=== PATIENT | female | born 1950 | race Caucasian/White ===

== ENCOUNTER → 2016-05-07 | Outpatient (CLI) | payer BC ==
[~2016-05-07] MED LIST: AMLO-110 PO; ASPEC81 PO; ATOR-26 PO; CHOL1000 PO; CHOL1TAB2; EPP3 IM; LEVO1TAB50 PO; LISI-725 PO; PRLSR20 PO; TAMO20TA47 PO; VITACAP37 PO
[2016-05-07 08:43] VITALS: BP 163/85; PULSE 104; TEMP 36.8; O2SAT 95
--- NOTE | 2016-05-07 10:18 | Radiation Oncology Follow-Up ---
Radiation Oncology Follow-Up Date of Visit May 07, 2016. Reason For Visit One-month follow-up and cancer survivorship care plan Radiation Completion Date finished 04-02-2016 right breast , and 01-08-2004 left breast Diagnosis (1) Intraductal carcinoma of right breast Status: Acute Onset Date: 11/03/2015 Stage: 0 Permanent Comment: History of prior left breast DCIS in 2003 Status post lumpectomy followed by radiation therapy. Radiation completed 01/07 received 6120 cGy Abnormal right breast mammogram 10/22/2015 Status post ultrasound-guided biopsy 11/03/2015 revealing atypical papillary proliferation with atypia and at least ADH. Review of slides at [facility] showed ductal carcinoma in situ Status post mammotome biopsies of the right breast 12/29/2015 revealing benign tissue Stage pTis NXMX Estrogen receptor positive BRCA1 and BRCA2 testing negative Status post completion of radiation therapy 04/02/2016. Received 5130 cGy utilizing hypo-fractionation. Tamoxifen therapy Last Edited By: Alyx Hooks on May 07, 2016 09:58 History of Present Illness Ms. Edmonds is a 65-year-old female who was seen at age 53 and November 2003 with a high-grade DCIS of the left breast. 5 foci of high-grade DCIS was identified and estrogen and progesterone receptors were negative. The patient underwent a partial mastectomy on 09/24/2003 confirming a high-grade DCIS with no infiltrating carcinoma and negative margins. 2 close margins were reexcised on October 20 and these were also negative. The patient went on to have adjuvant radiation to the left breast and chest wall from 11/21/2003 through January 08, 2004. She received a left breast and chest wall dose of 46.8 Gy and a boost of 14.4 Gy for a total dose of 61.2 Gy. The patient tolerated the treatment well and has been followed with mammograms since then. Her bilateral digital screening mammogram from 09/30/2014 revealed no mammographic abnormalities. However her bilateral digital screening mammograms on 10/22/2015 showed a new 3 mm right upper inner quadrant breast mass with additional imaging recommended. The additional imaging was performed on 2015. Real-time high-resolution sonographic evaluation was performed of the upper inner quadrant of the right breast at the 1:00 axis 4 cm from the nipple. This confirmed a circumscribed isoechoic solid appearing mass measuring 4.1 x 2.7 x 4.2 mm. This correlated with the mammographic mass and was given a BI- RADS Category 4B (intermediate suspicion for malignancy). On 11/03/2015 the patient underwent an ultrasound-guided biopsy of the right breast. This revealed atypical papillary proliferation with atypia at least ADH. No invasive carcinoma was identified and an excisional biopsy was suggested. Case : [id number]. Patient was seen at [facility] by Dr. Lassiter. She obtain the slides for review at [facility]. 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 Accession #: [id number]. As part of their protocol bilateral breast MRIs were recommended and performed on 12/24/2015. These images showed a right breast focus at the 8 o' clock position which was abnormal with an MRI guided biopsy recommended. On the patient underwent mammotome biopsies of the right breast 8 o'clock position. These revealed benign breast tissue with sclerosing adenosis, usual ductal hyperplasia, columnar cell change and apocrine metaplasia but no DCIS or invasive carcinoma. Accession #: [id number]. Patient went on to have a partial mastectomy of the right breast biopsy positive lesion on 01/29/2016. Review of the lumpectomy specimen revealed fibrocystic change including apocrine metaplasia with rare microcalcifications but no in situ or invasive carcinoma was identified. Accession #: [id number]. The submitted estrogen receptor stain demonstrated strong positive staining in 100% of the cells. Patient is scheduled to see Dr. Roman Gooden for discussion of the role of adjuvant antiestrogen therapy. We were asked to see her in referral to discuss the role of adjuvant radiation. Patient underwent radiation therapy utilizing hypo-fractionation. This was completed 11/01 2015 she received 5130 cGy. Interim History She's been doing well over the past month. She denies any discomfort of the breast. She is noted no masses or tenderness no change of the axilla. She does have some dark discoloration of the skin that is getting centrifugal operator. She also noticed that there are some skin tags in the inframammary fold that appear darker. She wanted these to be checked. She is currently scheduled for mammography and follow-up appointment with her breast surgeon in July. She recently returned home after enjoying a cruise. She chose to start her tamoxifen following her trip. She started the medication last week. She denies side effects other than mild hot flashes. Dr. Gooden recommended vitamin E to help with the hot flashes. Allergies Coded Allergies: BEE STING (Verified Allergy, Mild, Hives, 02/19/16) Home Medications Scheduled Amlodipine (Norvasc), 5 MG PO DAILY Aspirin Enteric Coated (Ecotrin Or Generic *), 81 MG PO DAILY Atorvastatin (Lipitor), 1 TAB PO DAILY Cholecalciferol (Vitamin D-3), 3,000 DAILY Epinephrine (Epipen *), 0.3 MG IM UD prn Levothyroxine Sodium (Levoxyl), 50 MCG PO DAILY Lisinopril (Zestril), 20 MG PO DAILY Omeprazole (Prilosec), 20 MG PO DAILY Tamoxifen (Nolvadex), 20 MG PO DAILY Review of Systems Gastrointestinal: Symptoms: WNL Oral: Symptoms: No Problems Respiratory: Symptoms: WNL Other Respiratory: " I think I am getting a cold " Urinary: Symptoms: WNL Skin: Symptoms: No Problems Breast: Right Upper Arm Measurement: 31.0 Right Mid Arm Measurement: 23.5 Right Wrist Measurement: 15.1 Left Upper Arm Measurement: 31.4 Left Mid Arm Measurement: 23.0 Left Wrist Measurement: 15.4 Arm Dominence: Right Patient Cosmetic Evaluation: Excellent Staff Cosmetic Evalaluation: Excellent Additional Notes: She completed a distress management report and answered "no" to all questions. Physical Exam Vital Signs Date Time Temp Pulse Resp B/P Pulse Ox O2 Delivery O2 Flow Rate FiO2 05/07/16 08:43 36.8 104 16 163/85 95 Pain: Side: Bilateral Patient Pain Scale: 0 - 10 Initial Pain Intensity: 0.0 Fatigue: None General Appearance: no apparent distress Eyes: normal inspection, EOMI ENT: normal ENT inspection, hearing grossly normal Neck: no adenopathy Respiratory/Chest: lungs clear, no respiratory distress, no accessory muscle use Breast: Breast examination reveals well-healed incisions in the right breast. There is resolving hyperpigmentation in the central upper portion of the breast. There is dryness of the skin in this area. She has a few dark keratotic lesions in the inframammary fold. There are no masses or tenderness and no axillary adenopathy. Using the [place] score cosmesis she has a a fair outcome due to the hyperpigmentation. Left breast revealed healed incision. There are no masses or tenderness and no axillary adenopathy. Cardiovascular: regular rate, rhythm, no gallop, no murmur Abdomen: non tender, soft, no organomegaly Extremities: no pedal edema Neurologic/Psychiatric: alert, normal mood/affect Skin: warm/dry Lymphatic: no adenopathy Assessment & Plan She is scheduled for follow-up mammogram and recheck visit with her breast surgeon in July. She'll be seeing Dr. Gooden in June. She continues on tamoxifen. For the areas of skin dryness of the breast and hyperpigmentation she was given Aquaphor. I reviewed with her that the keratotic lesions have changed due to the radiation. These will become centrifugal operator in color over time as the hyperpigmentation resolves. Today we completed a cancer survivorship care plan. A copy of the document was given to the patient. We reviewed that her follow-up mammograms will continue to be digital diagnostic mammograms. She was given a survivorship booklet. I asked her to return to our office in 6 months. She'll call if she has any questions or concerns in the interim. Total Time In Follow-Up I spent 20 minutes speaking to the patient performing examination. I spent 20 minutes reviewing information, completing the survivorship document, and completing this note. Copy To Roman Gooden D.O.; Olivia Lassiter D.O.; Robbi Wise M.D.
== END | disposition home or self-care (01) ==
LOC: C.ONC 08:26
PROVIDERS: ATTEND Radiology Radiation Oncology
DX: Z08 Encounter for follow-up examination after completed treatment for malignant neoplasm (principal); Z92.3 Personal history of irradiation; Z85.3 Personal history of malignant neoplasm of breast

== ENCOUNTER → 2016-07-01 | Outpatient (CLI) | payer BC ==
[~2016-07-01] MED LIST changes: -CHOL1000 PO
[2016-07-01 12:34] LABS: ALT/SGPT 39 U/L (12-78); BLOOD UREA NITROGEN 17 mg/dl (7-18); CALCIUM 9.1 mg/dl (8.5-10.1); CARBON DIOXIDE 28 mmol/L (21-32); CHLORIDE 108 mmol/L (98-107); CHOLESTEROL 206 mg/dl (0-200); GLUCOSE 94 mg/dl (70-99); POTASSIUM 4.3 mmol/L (3.5-5.1); SODIUM 142 mmol/L (136-145)
[2016-07-01 12:45] LABS: AST/SGOT 21 U/L (15-37); CHOLESTEROL/HDL RATIO 4.7; HDL CHOLESTEROL 44 mg/dl; LDL CHOLESTEROL CALCULATED 135 mg/dl; TRIGLYCERIDES 133 mg/dl (0-150); VERY LOW DENSITY LIPOPROT CALC 27 mg/dl
[2016-07-01 13:20] LABS: ESTIMATED AVERAGE GLUCOSE 120 mg/dl; HA1C FLAG Normal (Normal)
== END | disposition home or self-care (01) ==
LOC: C.LABPBG 07:57
PROVIDERS: ATTEND Internal Medicine
DX: R73.9 Hyperglycemia, unspecified (principal); E78.5 Hyperlipidemia, unspecified; E55.9 Vitamin D deficiency, unspecified; E03.9 Hypothyroidism, unspecified

== ENCOUNTER → 2016-09-02 | Outpatient (CLI) | payer BC ==
[~2016-09-02] MED LIST changes: +ASPCH81X PO; +CHOL1000 PO; +CHOL2000 PO; +EPP3/2 IM; +LEVO50TA6 PO; -TAMO20TA47 PO; +TAMO20TA9 PO; +VITA400C3 PO
== END | disposition home or self-care (01) ==
LOC: C.MAMM 08:32
PROVIDERS: ATTEND Obstetrics & Gynecology
DX: M85.89 Other specified disorders of bone density and structure, multiple sites (principal); Z78.0 Asymptomatic menopausal state

== ENCOUNTER → 2016-11-09 | Outpatient (CLI) | payer BC ==
[~2016-11-09] MED LIST changes: -ASPCH81X PO; -CHOL1000 PO; -CHOL2000 PO; -EPP3/2 IM; -LEVO50TA6 PO; +TAMO20TA47 PO; -TAMO20TA9 PO; -VITA400C3 PO
[2016-11-09 13:15] VITALS: BP 135/73; PULSE 98; TEMP 36.7; O2SAT 97
--- NOTE | 2016-11-09 16:00 | Radiation Oncology Follow-Up ---
Radiation Oncology Follow-Up Date of Visit Nov 09, 2016. Reason For Visit Annual follow-up Radiation Completion Date Right Breast - 04/02/16 Left Breast - 01/08/04 Diagnosis (1) Intraductal carcinoma of right breast Status: Resolved Onset Date: 11/03/2015 Stage: 0 Permanent Comment: History of prior left breast DCIS in 2003 Status post lumpectomy followed by radiation therapy. Radiation completed 01/07 received 6120 cGy Abnormal right breast mammogram 10/22/2015 Status post ultrasound-guided biopsy 11/03/2015 revealing atypical papillary proliferation with atypia and at least ADH. Review of slides at [facility] showed ductal carcinoma in situ Status post mammotome biopsies of the right breast 12/29/2015 revealing benign tissue Stage pTis NXMX Estrogen receptor positive BRCA1 and BRCA2 testing negative Status post completion of radiation therapy 04/02/2016. Received 5130 cGy utilizing hypo-fractionation. Tamoxifen therapy Last Edited By: Alyx Hooks on May 07, 2016 09:58 History of Present Illness Ms. Edmonds is a 65-year-old female who was seen at age 53 and November 2003 with a high-grade DCIS of the left breast. 5 foci of high-grade DCIS was identified and estrogen and progesterone receptors were negative. The patient underwent a partial mastectomy on 09/24/2003 confirming a high-grade DCIS with no infiltrating carcinoma and negative margins. 2 close margins were reexcised on October 20 and these were also negative. The patient went on to have adjuvant radiation to the left breast and chest wall from 11/21/2003 through January 08, 2004. She received a left breast and chest wall dose of 46.8 Gy and a boost of 14.4 Gy for a total dose of 61.2 Gy. The patient tolerated the treatment well and has been followed with mammograms since then. Her bilateral digital screening mammogram from 09/30/2014 revealed no mammographic abnormalities. However her bilateral digital screening mammograms on 10/22/2015 showed a new 3 mm right upper inner quadrant breast mass with additional imaging recommended. The additional imaging was performed on 2015. Real-time high-resolution sonographic evaluation was performed of the upper inner quadrant of the right breast at the 1:00 axis 4 cm from the nipple. This confirmed a circumscribed isoechoic solid appearing mass measuring 4.1 x 2.7 x 4.2 mm. This correlated with the mammographic mass and was given a BI- RADS Category 4B (intermediate suspicion for malignancy). On 11/03/2015 the patient underwent an ultrasound-guided biopsy of the right breast. This revealed atypical papillary proliferation with atypia at least ADH. No invasive carcinoma was identified and an excisional biopsy was suggested. Case : [id number]. Patient was seen at [facility] by Dr. Lassiter. She obtain the slides for review at [facility]. 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 Accession #: [id number]. As part of their protocol bilateral breast MRIs were recommended and performed on 12/24/2015. These images showed a right breast focus at the 8 o' clock position which was abnormal with an MRI guided biopsy recommended. On the patient underwent mammotome biopsies of the right breast 8 o'clock position. These revealed benign breast tissue with sclerosing adenosis, usual ductal hyperplasia, columnar cell change and apocrine metaplasia but no DCIS or invasive carcinoma. Accession #: [id number]. Patient went on to have a partial mastectomy of the right breast biopsy positive lesion on 01/29/2016. Review of the lumpectomy specimen revealed fibrocystic change including apocrine metaplasia with rare microcalcifications but no in situ or invasive carcinoma was identified. Accession #: [id number]. The submitted estrogen receptor stain demonstrated strong positive staining in 100% of the cells. Patient is scheduled to see Dr. Roman Gooden for discussion of the role of adjuvant antiestrogen therapy. We were asked to see her in referral to discuss the role of adjuvant radiation. Patient underwent radiation therapy utilizing hypo-fractionation. This was completed 11/01 2015 she received 5130 cGy. Interim History She's been doing well over this past 6 months. She denies any changes to her breast. She has noted no masses or tenderness no change of the axilla. She's had no swelling of her arm. She is up-to-date on mammography. She was started on tamoxifen. She is tolerating this other than it does cause hot flashes. She is taking vitamin E to help with hot flashes. She feels this may also cause softer bowel movements and more regular bowel movements. Allergies Coded Allergies: BEE STING (Verified Allergy, Mild, Hives, 02/19/16) Home Medications Scheduled Amlodipine (Norvasc), 5 MG PO DAILY Aspirin Enteric Coated (Ecotrin Or Generic *), 81 MG PO DAILY Atorvastatin (Lipitor), 1 TAB PO DAILY Cholecalciferol (Vitamin D-3), 3,000 DAILY Epinephrine (Epipen *), 0.3 MG IM UD prn Levothyroxine Sodium (Levoxyl), 50 MCG PO DAILY Lisinopril (Zestril), 20 MG PO DAILY Omeprazole (Prilosec), 20 MG PO DAILY Tamoxifen (Nolvadex), 20 MG PO DAILY Vitamin E (E-400), 1 CAP PO DAILY Review of Systems Gastrointestinal: Symptoms: WNL GI Comments: Looser bowels normal Oral: Symptoms: No Problems Respiratory: Symptoms: WNL Urinary: Symptoms: WNL Skin: Symptoms: No Problems Breast: Right Upper Arm Measurement: 30.5 Right Mid Arm Measurement: 24.1 Right Wrist Measurement: 15.0 Left Upper Arm Measurement: 31.0 Left Mid Arm Measurement: 24.3 Left Wrist Measurement: 15.0 Arm Dominence: Right Physical Exam Vital Signs Date Time Temp Pulse Resp B/P (MAP) Pulse Ox O2 Delivery O2 Flow Rate FiO2 11/09/16 13:15 36.7 98 18 135/73 97 Fatigue: None General Appearance: no apparent distress Eyes: normal inspection, EOMI ENT: hearing grossly normal, TMs normal Neck: no adenopathy, thyroid normal Respiratory/Chest: lungs clear, no respiratory distress, no accessory muscle use Breast: Breast examination reveals palpable deficit in the upper outer quadrant. There are no masses or tenderness no axillary adenopathy. Shows no telangiectasia or nipple changes. The hyperpigmentation has resolved. Using the [place] score cosmesis she has a good outcome. Left breast revealed well-healed incision. There are no masses or tenderness and no axillary adenopathy. Cardiovascular: regular rate, rhythm, no gallop, no murmur Abdomen: non tender, soft, no organomegaly Extremities: no pedal edema Neurologic/Psychiatric: no motor/sensory deficits, alert, normal mood/affect Skin: warm/dry Lymphatic: no adenopathy Additional Studies She had a mammogram at [facility] 10/28/2016. This showed postoperative changes in both breasts are benign. Bilateral diagnostic mammogram is recommended in 1 year. BI-RADS Category 2. Assessment & Plan Plan: Continue regular follow-up with medical oncology, her breast surgeon, primary care physician. Continue annual mammography. She continues on tamoxifen. We asked her to return to our office in 1 year. She may call if she has any questions or concerns in the interim. Total Time In Follow-Up I spent 20 minutes speaking to the patient and performing examination. I spent 15 minutes reviewing information in completing this note. Copy To Roman Gooden D.O.; Olivia Lassiter D.O.; Robbi Wise M.D.
== END | disposition home or self-care (01) ==
LOC: C.ONC 12:53
PROVIDERS: ATTEND Physician Assistant Medical
DX: Z08 Encounter for follow-up examination after completed treatment for malignant neoplasm (principal); Z92.3 Personal history of irradiation; Z85.3 Personal history of malignant neoplasm of breast

== ENCOUNTER → 2017-01-03 | Outpatient (CLI) | payer BC ==
[2017-01-03 12:08] LABS: BASO % 0.2 %; BASO ABS # 0.01 K/uL (0-0.2); COMPLETE YES; EOS % 1.7 %; IG% 0.2 %; LYMPH % 19.3 %; LYMPH ABS # 1.03 K/uL (1.2-3.4); MEAN CELL VOLUME 88.4 fL (80-100); MEAN CORPUSCULAR HEMOGLOBIN 28.2 pg (25-34); MEAN CORPUSCULAR HGB CONC 31.9 g/dl (32-36); MEAN PLATELET VOLUME 10.5 fL (7.4-10.4); MONO % 7.5 %; NEUT % 71.1 %; PLATELET COUNT 186 K/uL (130-400); RED BLOOD COUNT 4.75 M/uL (4.2-5.4); WHITE BLOOD COUNT 5.33 K/uL (4.8-10.8)
[2017-01-03 12:19] LABS: ALT/SGPT 36 U/L (12-78); AST/SGOT 19 U/L (15-37); BLOOD UREA NITROGEN 12 mg/dl (7-18); BUN/CREATININE RATIO 13.8 (10-20); CALCIUM 9.1 mg/dl (8.5-10.1); CARBON DIOXIDE 27 mmol/L (21-32); CHLORIDE 108 mmol/L (98-107); CHOLESTEROL 184 mg/dl (0-200); GLUCOSE 85 mg/dl (70-99); SODIUM 142 mmol/L (136-145); TRIGLYCERIDES 144 mg/dl (0-150); VERY LOW DENSITY LIPOPROT CALC 29 mg/dl
[2017-01-03 12:29] LABS: CHOLESTEROL/HDL RATIO 4.3; HDL CHOLESTEROL 43 mg/dl; LDL CHOLESTEROL CALCULATED 112 mg/dl
[2017-01-03 12:38] LABS: ESTIMATED AVERAGE GLUCOSE 120 mg/dl; HA1C FLAG Normal (Normal)
== END | disposition home or self-care (01) ==
LOC: C.LABPBG 10:16
PROVIDERS: ATTEND Internal Medicine
DX: E78.5 Hyperlipidemia, unspecified (principal); I10 Essential (primary) hypertension; R73.9 Hyperglycemia, unspecified; E03.9 Hypothyroidism, unspecified; K21.0 Gastro-esophageal reflux disease with esophagitis

== ENCOUNTER → 2017-06-17 | Outpatient (CLI) | payer BC ==
[~2017-06-17] MED LIST changes: +ASPCH81X PO; -ASPEC81 PO; +CHOL1000 PO; -CHOL1TAB2; +CHOL2000 PO; -EPP3 IM; +EPP3/2 IM; -LEVO1TAB50 PO; +LEVO50TA6 PO; -TAMO20TA47 PO; +TAMO20TA9 PO; +VITA400C3 PO; -VITACAP37 PO
[2017-06-17 11:59] LABS: HEMOGLOBIN A1C 5.7 % (4.5-5.6)
[2017-06-17 17:29] LABS: ALT/SGPT 35 U/L (12-78); AST/SGOT 19 U/L (15-37); BLOOD UREA NITROGEN 19 mg/dl (7-18); CALCIUM 8.9 mg/dl (8.5-10.1); CARBON DIOXIDE 25 mmol/L (21-32); CHOLESTEROL 178 mg/dl (0-200); CREATININE 1.01 mg/dl (0.60-1.20); GLUCOSE 93 mg/dl (70-99); LDL CHOLESTEROL CALCULATED 107 mg/dl; POTASSIUM 3.9 mmol/L (3.5-5.1); SODIUM 139 mmol/L (136-145)
== END | disposition home or self-care (01) ==
LOC: C.LABPBG 10:23
PROVIDERS: ATTEND Internal Medicine
DX: E78.5 Hyperlipidemia, unspecified (principal); R73.9 Hyperglycemia, unspecified; E03.9 Hypothyroidism, unspecified; E55.9 Vitamin D deficiency, unspecified

== ENCOUNTER → 2017-11-09 | Outpatient (CLI) | payer BC ==
[~2017-11-09] MED LIST changes: -AMLO-110 PO; +AMLO5TAB3 PO
[2017-11-09 12:41] VITALS: BP 142/77; PULSE 76; TEMP 36.7; O2SAT 99
--- NOTE | 2017-11-09 13:27 | Radiation Oncology Follow-Up ---
Radiation Oncology Follow-Up Date of Visit Nov 09, 2017. Reason For Visit Annual follow-up Radiation Completion Date 04/02/16 hypofractionation Diagnosis (1) Intraductal carcinoma of right breast Status: Resolved Onset Date: 11/03/2015 Stage: 0 Permanent Comment: History of prior left breast DCIS in 2003 Status post lumpectomy followed by radiation therapy. Radiation completed 01/07 received 6120 cGy Abnormal right breast mammogram 10/22/2015 Status post ultrasound-guided biopsy 11/03/2015 revealing atypical papillary proliferation with atypia and at least ADH. Review of slides at [facility] showed ductal carcinoma in situ Status post mammotome biopsies of the right breast 12/29/2015 revealing benign tissue Stage pTis NXMX Estrogen receptor positive BRCA1 and BRCA2 testing negative Status post completion of radiation therapy 04/02/2016. Received 5130 cGy utilizing hypo-fractionation. Tamoxifen therapy Last Edited By: Alyx Hooks on May 07, 2016 09:58 History of Present Illness Ms. Edmonds is a 65-year-old female who was seen at age 53 and November 2003 with a high-grade DCIS of the left breast. 5 foci of high-grade DCIS was identified and estrogen and progesterone receptors were negative. The patient underwent a partial mastectomy on 09/24/2003 confirming a high-grade DCIS with no infiltrating carcinoma and negative margins. 2 close margins were reexcised on October 20 and these were also negative. The patient went on to have adjuvant radiation to the left breast and chest wall from 11/21/2003 through January 08, 2004. She received a left breast and chest wall dose of 46.8 Gy and a boost of 14.4 Gy for a total dose of 61.2 Gy. The patient tolerated the treatment well and has been followed with mammograms since then. Her bilateral digital screening mammogram from 09/30/2014 revealed no mammographic abnormalities. However her bilateral digital screening mammograms on 10/22/2015 showed a new 3 mm right upper inner quadrant breast mass with additional imaging recommended. The additional imaging was performed on 2015. Real-time high-resolution sonographic evaluation was performed of the upper inner quadrant of the right breast at the 1:00 axis 4 cm from the nipple. This confirmed a circumscribed isoechoic solid appearing mass measuring 4.1 x 2.7 x 4.2 mm. This correlated with the mammographic mass and was given a BI- RADS Category 4B (intermediate suspicion for malignancy). On 11/03/2015 the patient underwent an ultrasound-guided biopsy of the right breast. This revealed atypical papillary proliferation with atypia at least ADH. No invasive carcinoma was identified and an excisional biopsy was suggested. Case : [id number]. Patient was seen at [facility] by Dr. Lassiter. She obtain the slides for review at [facility]. 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 Accession #: [id number]. As part of their protocol bilateral breast MRIs were recommended and performed on 12/24/2015. These images showed a right breast focus at the 8 o' clock position which was abnormal with an MRI guided biopsy recommended. On the patient underwent mammotome biopsies of the right breast 8 o'clock position. These revealed benign breast tissue with sclerosing adenosis, usual ductal hyperplasia, columnar cell change and apocrine metaplasia but no DCIS or invasive carcinoma. Accession #: [id number]. Patient went on to have a partial mastectomy of the right breast biopsy positive lesion on 01/29/2016. Review of the lumpectomy specimen revealed fibrocystic change including apocrine metaplasia with rare microcalcifications but no in situ or invasive carcinoma was identified. Accession #: [id number]. The submitted estrogen receptor stain demonstrated strong positive staining in 100% of the cells. Patient is scheduled to see Dr. Roman Gooden for discussion of the role of adjuvant antiestrogen therapy. We were asked to see her in referral to discuss the role of adjuvant radiation. Patient underwent radiation therapy utilizing hypo-fractionation. This was completed 11/01 2015 she received 5130 cGy. Interim History She has been doing well over the past year. She is noted no changes to her breast. She is noted no masses or tenderness and no change of the axilla. There is no swelling of her arm. She is up-to-date on mammography. She is seen regularly by her breast surgeon and has mammography at [facility]. She did receive a letter that the mammogram was negative. She continues on tamoxifen and denies side effects. She had a routine colonoscopy February 2017 and that was negative. Allergies Coded Allergies: BEE STING (Verified Allergy, Mild, Hives, 02/10/17) NO KNOWN DRUG ALLERGIES (Verified Allergy, Unknown, ., 02/10/17) Home Medications Scheduled Amlodipine (Norvasc), 5 MG PO QAM Aspirin (Aspirin Chewable), 81 MG PO QAM Atorvastatin (Lipitor), 1 TAB PO HS Cholecalciferol (Vitamin D3), 1 TAB PO QAM Cholecalciferol (Vitamin D3), 1 CAP PO QAM Epinephrine (Epipen), 0.3 MG IM UD Levothyroxine Sodium (Levothyroxine Sodium), 1 TAB PO HS Lisinopril (Zestril), 20 MG PO QAM Omeprazole (Prilosec), 20 MG PO QAM Tamoxifen (Nolvadex), 20 MG PO HS Vitamin E (Vitamin E 400 Iu), 400 INTER.UNIT PO HS Review of Systems Gastrointestinal: Symptoms: WNL Oral: Symptoms: No Problems Respiratory: Symptoms: WNL Urinary: Symptoms: WNL Skin: Symptoms: No Problems Breast: Right Upper Arm Measurement: 32.5 Right Mid Arm Measurement: 25.5 Right Wrist Measurement: 15.3 Left Upper Arm Measurement: 32.3 Left Mid Arm Measurement: 25.3 Left Wrist Measurement: 15.0 Arm Dominence: Right Physical Exam Vital Signs Date Time Temp Pulse Resp B/P (MAP) Pulse Ox O2 Delivery O2 Flow Rate FiO2 11/09/17 12:41 36.7 76 12 142/77 99 Fatigue: None General Appearance: no apparent distress Eyes: normal inspection, EOMI ENT: normal ENT inspection, hearing grossly normal Neck: no adenopathy, thyroid normal Respiratory/Chest: lungs clear, no respiratory distress, no accessory muscle use Breast: Wrist examination reveals bilateral well-healed incisions. There are no masses or tenderness and no axillary adenopathy. There is a slight defect from the lumpectomy in the upper outer quadrant of the right breast. There are fibrous changes around the defect. There are no distinct masses. Bilaterally there is no axillary adenopathy. Using the [place] score cosmesis she has a good outcome. Cardiovascular: regular rate, rhythm, no gallop, no murmur Abdomen: non tender Extremities: no pedal edema Neurologic/Psychiatric: no motor/sensory deficits, alert, normal mood/affect Skin: warm/dry Pain Management Patient Reports Pain: No Initial Pain Intensity: 0.0 Pain Management Plan She denies pain therefore requires no pain management. Laboratory Laboratory Results: not applicable Pathology Pathology Results: were reviewed, and pertinent findings noted in HPI Imaging Imaging Studies: were reviewed, and pertinent findings noted below Imaging Comments She had a mammogram at [facility] October 31, 2017. This showed stable postlumpectomy changes in both breasts which are benign. A bilateral diagnostic mammogram is recommended in 1 year. This was given BI-RADS Category 2. Benign. Assessment & Plan Plan: Continue with annual mammography. She continues follow-up with her primary care provider and breast surgeon. She continues follow-up with medical oncology. She continues on tamoxifen. We asked her to return to our office in 1 year. She may call if she has any questions or concerns in the interim. Total Time In Follow-Up I spent 20 minutes speaking to the patient in performing examination. I spent 15 minutes reviewing information and completing this note. Copy To Roman Gooden D.O.; Olivia Lassiter D.O.; Robbi Wise M.D.
== END | disposition home or self-care (01) ==
LOC: C.ONC 12:31
PROVIDERS: ATTEND Physician Assistant Medical
DX: Z08 Encounter for follow-up examination after completed treatment for malignant neoplasm (principal); Z92.3 Personal history of irradiation; Z85.3 Personal history of malignant neoplasm of breast

== ENCOUNTER 2019-04-13 08:32 | Observation (INO) ==
--- NOTE | 2019-04-05 11:11 | Anesthesiology Consultation ---
Date of Service April 05, 2019 Assessment & Plan Chart Review Chart Review: Pending: Refer to Additional Notes / Consult section (Patient has a h/o carotid artery stenosis, please obtain a recent carotid doppler) History Surgery Operation Date: 04/13/19 10:50 Proposed Procedures p Robotic Total Laparoscopic Hysterectomy - Kelin Archibald DO Height/Weight Height: 5 ft 1.75 in Weight: 68.039 kg Allergies Allergy/AdvReac Type Severity Reaction Status Date / Time bee venom protein (honey bee) Allergy Mild Hives Verified 04/02/19 14:10 No Known Drug Allergies Allergy Unknown . Verified 04/02/19 14:10 Medications Home Medications Medication Instructions Recorded Confirmed Last Taken amlodipine 5 mg tablet 5 mg PO QAM 01/02/19 04/02/19 02/26/19 06:50 cholecalciferol (vitamin D3) 3,000 3,000 units PO QAM 01/02/19 04/02/19 02/25/19 unit tablet lisinopril 20 mg tablet 20 mg PO QAM 01/02/19 04/02/19 02/25/19 omeprazole 20 mg capsule,delayed 20 mg PO QAM 01/02/19 04/02/19 02/26/19 06:50 release tamoxifen 20 mg tablet 20 mg PO PM 01/02/19 04/02/19 02/25/19 epinephrine 0.3 mg/0.3 mL 0.3 mg IM UD PRN ea 01/08/19 04/02/19 Unknown injection, auto-injector ibuprofen 600 mg tablet 600 mg PO DIRECTED PRN 02/01/19 04/02/19 02/15/19 atorvastatin 80 mg PO QPM 02/06/19 04/02/19 02/25/19 vitamin E 400 unit PO PM 02/06/19 04/02/19 02/25/19 levothyroxine 75 mcg tablet 75 mcg PO QPM 02/08/19 04/02/19 02/25/19 aspirin 81 mg PO QAM 04/02/19 04/02/19 Unknown Past Medical History Medical History Carotid artery stenosis (Acute) Chronic reflux esophagitis (Acute) H/O malignant neoplasm of breast LT- Had radiation History of carcinoma in situ of breast Hyperlipidemia (Acute) Hypertension (Acute) Hypothyroidism (Acute) Intraductal carcinoma of right breast (Resolved 11/03/15) "History of prior left breast DCIS in 2003 Status post lumpectomy followed by radiation therapy. Radiation completed 01/08/2004 received 6120 cGy Abnormal right breast mammogram 10/22/2015 Status post ultrasound-guided biopsy 11/03/2015 revealing atypical papillary proliferation with atypia and at least ADH. Review of slides at [place] showed ductal carcinoma in situ Status post mammotome biopsies of the right breast 12/29/2015 revealing benign tissue Stage pTis NXMX Estrogen receptor positive BRCA1 and BRCA2 testing negative Status post completion of radiation therapy 04/02/2016. Received 5130 cGy utilizing hypo-fractionation. Tamoxifen therapy" On 04/13/16 14:49 Alyx Hooks wrote "History of prior left breast DCIS in 2003 Status post lumpectomy followed by radiation therapy. Radiation completed 01/08/2004 received 6120 cGy Abnormal right breast mammogram 10/22/2015 Status post ultrasound-guided biopsy 11/03/2015 revealing atypical papillary proliferation with atypia and at least ADH. Review of slides at [place] showed ductal carcinoma in situ Status post mammotome biopsies of the right breast 12/29/2015 revealing benign tissue Stage pTis NXMX Estrogen receptor positive Status post completion of radiation therapy 04/02/2016. Received 5130 cGy utilizing hypo-fractionation." On 02/19/16 10:32 Alyx Hooks wrote "History of prior left breast DCIS in 2003 Status post lumpectomy followed by radiation therapy. Radiation completed 01/08/2004 received 6120 cGy Abnormal right breast mammogram 10/22/2015 Status post ultrasound-guided biopsy 11/03/2015 revealing atypical papillary proliferation with atypia and at least ADH. Review of slides at [place] showed ductal carcinoma in situ Status post mammotome biopsies of the right breast 12/29/2015 revealing benign tissue Stage pTis NXMX Estrogen receptor positive" Postmenopausal bleeding (Acute) Temporomandibular joint disorder hx Tendonitis Vitamin D deficiency (Acute) Past Family History Family History Aunt Breast cancer maternal aunt Father Hypertension Stroke Ischemic heart disease Mother Hypertension Stroke Hyperlipidemia Past Surgical History Surgical History (Reviewed 04/05/19 @ 11:04 by LESLI Estrada H/O dilation and curettage History of colonoscopy S/P breast lumpectomy x2 Social History Smoking Status: Never smoker Hx Alcohol Use: Yes Alcohol type: beer alcohol intake frequency: a few times a month Hx Substance Use: No substance use type: does not use Testing Laboratory Results Laboratory Tests 04/02/19 04/02/19 04/02/19 15:34 15:34 15:34 WBC 8.13 Hgb 14.1 Plt Count 236 Sodium 139 Potassium 3.4 L Chloride 108 H Carbon Dioxide 27 BUN 19 H Creatinine 1.03 Glucose 89 TSH 0.788 Electrocardiogram Date: 02/01/19 Findings: + NSR @ (99 bpm)
[~2019-04-13 08:32] MED LIST changes: +ACETAMINOPHEN 1000 MG/100 ML IV IV ONE; -AMLO5TAB3 PO; -ASPCH81X PO; -ATOR-26 PO; +CEFAZOLIN 2000MG 2,000 MG/15 ML SYR IV SCH; -CHOL1000 PO; -CHOL2000 PO; +DEXAMETHASONE SOD INJ 4 MG/ML VIAL ONE; -EPP3/2 IM; -LEVO50TA6 PO; +LIDOCAINE HCL 2% 2 ML VIAL/AMP(20MG/ML) INFIL ONE; -LISI-725 PO; +LR 15ML/HR IV SCH; +MIDAZOLAM HCL 1 MG/ML 2ML VIAL ONE; +ONDANSETRON INJ 2 MG/ML 2 ML VIAL ONE; -PRLSR20 PO; +PROPOFOL IV EMULSION 10 MG/ML 20 ML VIAL IV ONE; +ROCURONIUM BROMIDE 10 MG/ML 5 ML VIAL ONE; -TAMO20TA9 PO; -VITA400C3 PO; +fentaNYL citrate 100 MCG/2 ML VIAL ONE
--- NOTE | 2019-04-13 09:47 | History & Physical Bridge Note ---
Date of Service April 13, 2019 History & Physical Bridge Note I have examined the patient, reviewed the History & Physical and in the interval since the performance of the History & Physical I have noted the following changes of clinical significance: no changes noted
[2019-04-13] MEDS ORDERED: BUPIVACAINE 0.5 % 5 MG/1 ML MPF 30ML VIAL ONE (10:20)
[2019-04-13] MEDS ORDERED: METHYLENE BLUE 0.5% 10 ML VIAL ONE (10:20)
[2019-04-13] MEDS ORDERED: fentaNYL citrate 100 MCG/2 ML VIAL ONE ×3 (11:15→12:42)
[2019-04-13] MEDS ORDERED: ePHEDrine sulfate 50 MG/ML AMP IV PRN (11:19)
[2019-04-13] MEDS ORDERED: fentaNYL citrate 100 MCG/2 ML VIAL IV PRN (11:19)
[2019-04-13] MEDS ORDERED: ONDANSETRON INJ 2 MG/ML 2 ML VIAL IV PRN ×2 (11:19→14:08)
[2019-04-13] MEDS ORDERED: ATROPINE SULFATE 0.1 MG/ML 10ML SYR IV PRN (11:19)
[2019-04-13] MEDS ORDERED: HYDROmorphone INJ 1 MG/ML SYRINGE IV PRN (11:19)
--- NOTE | 2019-04-13 12:29 | Operative Report ---
DATE OF OPERATION: 04/13/2019 I got a call from the OR, Dr. Archibald, who was doing laparoscopic hysterectomy. Incidentally, she found the patient had a small mass from the small bowel mesentery. So, I got a call from the OR and I went to the OR and scrubbed in. I found out the patient had a small mass from the small bowel mesentery and the mass size was about 1 x 1 cm. It was dhillon in color. So, the mass was about 0.5 cm from the small bowel coming from the mesentery. At this moment, I used the harmonic to take down the mesentery and completely removed the mass and put a bag to remove the mass through the bag and then the patient's attending taking care of the rest of the operation, and after we removed the mass, we rechecked, no injury to the small bowel and no active bleeding, so the mass was sent to pathology I attest to the content of the Intraoperative Record and any orders documented therein. Any exception s are noted below.
[2019-04-13] MEDS ORDERED: TISSEEL FIBRIN SEALANT 10ML TOP ONE (12:51)
[2019-04-13] MEDS ORDERED: KETOROLAC 30 MG/ML VIAL ONE (13:52)
--- NOTE | 2019-04-13 14:01 | Operative Report ---
PG Post Operative Report Pre & Post Diagnosis Operation Date: 04/13/19 10:10 Pre-Op Diagnosis: Postmenopausal Bleeding Post-Op Diagnosis: Postmenopausal Bleeding I identified the patient and participated in the time-out.: Yes Procedure Operation Date: 04/13/19 10:10 Actual Procedures p Robotic Total Laparoscopic Hysterectomy with bilateral salpingo-oopherectomy, cystoscopy, repair of perineal laceration(Not Applicable) - Kelin Archibald DO Laparoscopic removal of small bowel mass performed by Dr Alda Case (General surgery - [facility]) Surgeon Kelin Archibald DO Technician [employer] Miguelito Palencia MD PGY2 Estimated Blood Loss 10 Findings See Below 1cm small bowel mass Normal appearing uterus, tubes, ovaries Specimens small bowel mass uterus, ovaries, fallopian tubes Drains shea - clear yellow urine (then blue-stained by methylene blue) Anesthesia Type General Complications Visualization of small bowel mass upon laparoscopy, Dr Case (general surgeon on- call) was consulted and scrubbed into case to remove small bowel mass laparoscopically. Please see his notes for further details. Disposition Accompanied Patient To Recovery: No Disposition: Recovery Room Indications Patient is a 68-year-old G0 who is a longtime patient of my partner Dr. Jenn Vidal. She had presented to Dr. Vidal in December 2018 with a complaint of postmenopausal bleeding, also has breast cancer and is currently on tamoxifen. She underwent ultrasound that showed a normal-sized uterus with endometrial lining 6.2 mm with fluid in the cavity, it was described as microcystic and vascular. Left ovary was not seen in the right ovary was normal. She then presented in January 2019 for saline infusion sonogram, and due to her uterine cavity being filled with fluid, did not actually need the infusion of saline to obtain imaging. There was a 1.75 cm mass noted, appeared to be a polyp as it was bright white and showed a feeder of blood vessel. She is recommended to undergo hysteroscopy, D&C, removal of the polyp. When Dr. Vidal took her to the operating room in February 2019 for this procedure, she was unable to get inside the uterine cavity. There is significant scarring noted, and dilation of the cervix with entry into the uterine cavity was impossible. She discussed this with Dr. Vidal in the office, and was recommended to undergo hysterectomy. She was given the option to go directly to [facility] for the surgery, with the information that there is a possibility this could be cancerous. We will not know until pathology looks at the uterus. If this is cancerous, she may need further surgery or further therapy. She would rather have the procedure performed here, and is willing to take the risk that this is an undiagnosed malignancy. She was sent to me for hysterectomy scheduling, as she is traveling in early June and would be unable to get in for surgery with Dr. Vidal prior to that. She has medical history of breast cancer, carotid artery stenosis, hypertension, hypothyroidism. Surgical history of dilation and curettage, colonoscopy, breast lumpectomy. Description of Procedure The patient was seen in the preoperative holding area, risks benefits and alternatives to surgery reviewed. She elected to proceed with the case. All questions were answered. She had previously signed informed consent under no duress in the office. She was taken to the operating room, general anesthesia was administered. She prepared and draped in the usual sterile fashion with feet in yellowfin stirrups in the dorsolithotomy position. Timeout was confirmed. She received 2 g of Ancef preoperatively. Shea catheter was inserted into the bladder. A weighted speculum was placed in the vagina, the cervix was visualized and its anterior lip was grasped with single-tooth tenaculum. The vagina was very small, consistent with postmenopaus al G0. The cervix was gently dilated, and the uterine manipulator was suture tied into place. Gloves were changed, attention was then turned to the abdomen. A supraumbilical incision was made with a scalpel, and using the optical view scope, the umbilical trocar was placed under direct visualization into the abdominal cavity. 2 bilateral trochars were placed on each side of the umbilical trocar across the abdomen for a total of 5. The abdomen cavity was viewed, and a small 1 cm small bowel mass was noted. I asked for intraoperative consultation from Dr. Case, who is [facility]-call [facility]. He came to the operating room and removed the mass, and this was sent to pathology. Please see his documentation for further details. While waiting for surgical consultation, I called patient's sister Valery in the waiting room, discussed my findings with her and recommendation for surgical consult. She was agreeable to any procedures needing to occur in response to the finding of small bowel mass. The robot was then docked, and the hysterectomy was started. The bilateral ureters were visualized peristalsing far from the operative site. The left infundibulopelvic ligament was coagulated and transected, followed by the left round ligament. The right infundibulopelvic and round ligaments were similarly transected and coagulated. The bladder flap was taken down on the anterior aspect of the uterus. Bilateral uterine vessels were coagulated and transected. The uterus was amputated from the vagina. The uterus was then delivered through the vagina, with uterus and bilateral fallopian tubes and ovaries all being sent with the same specimen to pathology. The vaginal cuff was coagulated to obtain excellent hemostasis. 0 V lock suture was used to reapproximate the vaginal cuff in a running stitch. Excellent hemostasis was observed. Attention was then turned to the bladder, the Shea catheter was removed and cystoscopy was performed. The cystoscope was inserted, bilateral ureters were visualized with urine jets. Methylene blue was used to assist this visualization. The bladder appeared normal and atraumatic. A new Shea catheter was placed upon removal of the cystoscope. Attention was then turned again to the abdomen, Tisseel coagulant was used across the raw edges and vaginal cuff. Excellent hemostasis was observed upon low pressure test. The robot was undocked and all trochars were removed. The supraumbilical and assistant center director port trocar sites were reapproximated in the subcutaneous tissue with a stitch of 0 Vicryl. Next, all incisions were reapproximated using a subcuticular stitch with 4-0 Vicryl. Marcaine was injected at the sites for local anesthetic. Dermabond was applied. The vagina was inspected, a first-degree perineal laceration was noted and repaired in a running stitch with 3-0 Vicryl. Excellent hemostasis was observed. All instrument, sponge, needle counts were correct x2 at the conclusion of the case. Patient was taken to the recovery area in stable and good condition. I attest to the content of the Intraoperative Record and any orders documented therein. Any exceptions are noted below.
[2019-04-13] MEDS ORDERED: OXYCODONE/ACETAMINOPHEN 5mg/325mg TAB PO PRN ×2 (14:08)
[2019-04-13] MEDS ORDERED: IBUPROFEN 600 MG TAB PO PRN (14:08)
[2019-04-13] MEDS ORDERED: PROMETHAZINE HCL 12.5 MG in SODIUM CHLORIDE 0.9% 50 ML IV PRN (14:08)
[2019-04-13] MEDS ORDERED: SIMETHICONE 80 MG CHEW PO PRN (14:08)
[2019-04-13] MEDS ORDERED: LABETALOL HCL IV 5 MG/ML 20ML IV ONE (14:38)
[2019-04-13] MEDS ORDERED: LABETALOL HCL IV 5 MG/ML 20ML IV STA (14:41)
--- NOTE | 2019-04-13 15:13 | Anesthesiology Progress Note ---
Date of Service April 13, 2019 Anesthesia Post Procedure Vital Signs Vital Signs: Temp Pulse Pulse Resp BP Pulse Ox 04/13/19 14:55 36.3 C L 80 16 157/62 H 96 04/13/19 14:45 75 14 166/72 H 98 04/13/19 14:35 79 14 180/68 H 100 04/13/19 14:25 91 H 14 174/80 H 100 04/13/19 14:15 99 H 16 162/79 H 100 04/13/19 14:09 36.1 C L 101 H 14 160/82 H 100 04/13/19 09:10 36.6 C 107 H 18 184/81 H 96 Transfer of Care Handoff Completed per policy Notes Mental Status: alert / awake / arousable and participated in evaluation Patient Amnestic to Procedure: Yes Nausea / Vomiting: adequately controlled Pain: adequately controlled Airway Patency, RR, SpO2: stable & adequate BP & HR: stable & adequate Hydration State: stable & adequate Anesthetic Complications: no major complications apparent and Pt Satisfied with anesthetic care
[2019-04-13] MEDS ORDERED: LABETALOL HCL IV 5 MG/ML 20ML IV PRN (15:44)
--- NOTE | 2019-04-13 15:52 | Gynecologic Progress Note ---
Date of Service April 13, 2019 Subjective POD#0 doing well. Awake, alert, oriented. Not yet ambulating. Shea in place draining clear blue urine. Abdomen soft, nondistended. Incisions CDI. I discussed case with her, reviewed intraoperative consultation with Dr Case (General surgery) for small bowel mass, and that pathology is pending. Will advance diet, ambulate, and remove shea when ambulatory. OK to discharge home tonight. If it becomes late in the night by the time she meets this criteria, will plan to keep on observation overnight and DC home in the AM. Results & Data Vital Signs (Past 12 Hours) Vital Signs Temp Pulse Pulse Resp BP Pulse Ox 04/13/19 15:10 78 16 159/68 H 94 04/13/19 14:55 36.3 C L 80 16 157/62 H 96 04/13/19 14:45 75 14 166/72 H 98 04/13/19 14:35 79 14 180/68 H 100 04/13/19 14:25 91 H 14 174/80 H 100 04/13/19 14:15 99 H 16 162/79 H 100 04/13/19 14:09 36.1 C L 101 H 14 160/82 H 100 04/13/19 09:10 36.6 C 107 H 18 184/81 H 96
[2019-04-13 20:24] LABS: Hematocrit (blood only) 38.4 % (37-47); Hemoglobin 12.7 g/dL (12.0-16.0)
[2019-04-13] MEDS: DOCUSATE SODIUM 100 MG CAP PO SCH (21:36)
[2019-04-13] MEDS ORDERED: LEVOTHYROXINE SODIUM 75 MCG TABLET PO STA (22:34)
[2019-04-13] MEDS ORDERED: TAMOXIFEN CITRATE 10 MG TABLET PO STA (22:34)
[2019-04-13] MEDS ORDERED: LABETALOL HCL 100 MG TAB PO PRN (22:36)
[2019-04-13] MEDS ORDERED: ATORVASTATIN 40 MG TAB PO STA (23:01)
[2019-04-14 06:57] LABS: Basophils # (auto) 0.01 K/uL (0-0.2); Basophils % (auto) 0.1 %; Eosinophils # (auto) 0.01 K/uL (0-0.5); Eosinophils % (auto) 0.1 %; Hematocrit (blood only) 36.5 % (37-47); Hemoglobin 11.9 g/dL (12.0-16.0); Immature Granulocytes # (auto) 0.01 K/uL (0.00-0.02); Immature Granulocytes % (auto) 0.1 %; Lymphocytes # (auto) 1.04 K/uL (1.2-3.4); Lymphocytes % (auto) 12.1 %; Mean Corpuscular Hemoglobin 28.3 pg (25-34); Mean Corpuscular Hgb Conc 32.6 g/dL (32-36); Mean Corpuscular Volume 86.7 fL (80-100); Mean Platelet Volume 10.1 fL (7.4-10.4); Monocytes # (auto) 0.65 K/uL (0.11-0.59); Monocytes % (auto) 7.6 %; Neutrophils # (auto) 6.87 K/uL (1.4-6.5); Platelet Count 171 K/uL (130-400); RDW Coefficient of Variation 13.9 % (11.5-14.5); RDW Standard Deviation 44.2 fL (36.4-46.3); Red Blood Count 4.21 M/uL (4.2-5.4); White Blood Count 8.59 K/uL (4.8-10.8)
[2019-04-14 07:30] LABS: BUN Creatinine Ratio 14.1 (10-20); Calcium 8.8 mg/dl (8.5-10.1); Creatinine Clr Calc Pharmacy 55.6 ml/min; Est GFR (African American) 80.5; Est GFR (Non-African American) 69.4; Potassium 4.1 mmol/L (3.5-5.1)
[2019-04-14] MEDS: DOCUSATE SODIUM 100 MG CAP PO SCH (08:05)
[2019-04-14] MEDS ORDERED: ASPIRIN 81 MG ECTAB PO SCH (09:00)
[2019-04-14] MEDS ORDERED: AMLODIPINE BESYLATE 5 MG TAB PO SCH (09:00)
[2019-04-14] MEDS ORDERED: PANTOprazole 40 MG TAB PO SCH (09:00)
[2019-04-14] MEDS ORDERED: lisinopriL 20 MG TAB PO SCH (09:00)
--- NOTE | 2019-04-14 09:10 | Gynecologic Progress Note ---
Date of Service April 14, 2019 Assessment & Plan (1) Postmenopausal bleeding: POD#1 s/p robot-assisted total laparoscopic hysterectomy, bilateral salpingoophorectomy, cystoscopy. Doing well. Discharge to home today. Reviewed DC instructions and followup in office 2w and 6w. Subjective POD#1 doing well. Ambulating. Eating/drinking ok. No nausea/vomiting. Scant bleeding. Is urinating ok. Not passing gas or having bowel movements yet. Pain minimal - is not requesting pain meds. Review of Systems Review of Systems: All systems reviewed & are unremarkable except as noted in HPI & below Physical Exam Physical Exam: Gen: AAOx3 NAD CV: RRR L: CTAB Abd: soft, nondistended. +bowel sounds. Incisions CDI Ext: no edema, no calf tenderness : no bleeding. Results & Data Vital Signs (Past 12 Hours) Vital Signs Temp Pulse Pulse Pulse Resp BP Pulse Ox 04/14/19 08:27 36.7 C 85 104 H 82 16 155/77 H 97 04/14/19 08:15 36.7 C 104 H 16 155/77 H 04/14/19 04:30 36.7 C 85 17 145/63 H 97 04/13/19 23:25 36.8 C 82 17 164/73 H 95
--- NOTE | 2019-04-14 09:12 | Discharge Summary ---
Date of Service April 14, 2019 Discharge Data Procedures Performed Operation Date: 04/13/19 10:10 Actual Procedures p Robotic Total Laparoscopic Hysterectomy with bilateral salpingo-oopherectomy, laparoscopic excision of small bowel mass(Not Applicable) - Kelin Archibald DO s Cystoscopy(Not Applicable) - Kelin Archibald DO Hospital Course (1) Postmenopausal bleeding: Discharged on POD#1 s/p robot-assisted total laparoscopic hysterectomy, bilateral salpingoophorectomy, cystoscopy. Routine recovery. Doing well. Reviewed DC instructions and followup in office 2w and 6w. Rx percocet sent to pharmacy on file.
[2019-04-14] MEDS ORDERED: ATORVASTATIN 40 MG TAB PO SCH ×2 (21:00)
[2019-04-14] MEDS ORDERED: TAMOXIFEN CITRATE 10 MG TABLET PO SCH (21:00)
[2019-04-14] MEDS ORDERED: LEVOTHYROXINE SODIUM 75 MCG TABLET PO SCH (21:00)
== END 2019-04-14 12:09 | disposition home or self-care (01) ==
LOC: 4N 08:32 → ASU 08:32

== ENCOUNTER 2019-04-21 11:39 | Inpatient (IN) ==
[2019-04-21 12:14] LABS: Basophils # (auto) 0.02 K/uL (0-0.2); Basophils % (auto) 0.1 %; Eosinophils # (auto) 0.02 K/uL (0-0.5); Eosinophils % (auto) 0.1 %; Hematocrit (blood only) 37.4 % (37-47); Hemoglobin 12.4 g/dL (12.0-16.0); Immature Granulocytes # (auto) 0.04 K/uL (0.00-0.02); Immature Granulocytes % (auto) 0.3 %; Lymphocytes # (auto) 0.92 K/uL (1.2-3.4); Lymphocytes % (auto) 6.3 %; Mean Corpuscular Hgb Conc 33.2 g/dL (32-36); Mean Corpuscular Volume 87.4 fL (80-100); Mean Platelet Volume 10.3 fL (7.4-10.4); Monocytes # (auto) 1.01 K/uL (0.11-0.59); Neutrophils % (auto) 86.2 %; Platelet Count 213 K/uL (130-400); RDW Coefficient of Variation 13.5 % (11.5-14.5); Red Blood Count 4.28 M/uL (4.2-5.4); White Blood Count 14.51 K/uL (4.8-10.8)
[2019-04-21 12:28] LABS: INR 1.1 (0.9-1.1); Partial Thromboplastin Time 27.1 Seconds (21.0-31.0); Prothrombin Time 10.8 Seconds (9.0-12.0)
[2019-04-21 12:31] LABS: Alanine Aminotransferase 33 U/L (12-78); Albumin Level 2.9 gm/dl (3.4-5.0); Aspartate Aminotransferase 19 U/L (15-37); BUN Creatinine Ratio 15.3 (10-20); Blood Urea Nitrogen 16 mg/dl (7-18); Calcium 9.1 mg/dl (8.5-10.1); Carbon Dioxide 23 mmol/L (21-32); Chloride 107 mmol/L (98-107); Creatinine Clr Calc Pharmacy 43.9 ml/min; Est GFR (African American) 61.8; Est GFR (Non-African American) 53.3; Glucose 136 mg/dl (70-99); Potassium 3.4 mmol/L (3.5-5.1); Sodium 138 mmol/L (136-145)
[2019-04-21 12:35] LABS: Albumin Globulin Ratio 0.7 (0.9-2); Alkaline Phosphatase 61 U/L (45-117); Bilirubin,Total 0.7 mg/dl (0.2-1); Globulin 4.3 gm/dl (2.5-4.0); Total Protein 7.2 gm/dl (6.4-8.2); Troponin I < 0.015 ng/ml (0-0.045)
[2019-04-21 12:39] LABS: iSTAT Hemoglobin 11.2 g/dl (12.0-16.0); iSTAT Ionized Calcium 1.19 mmol/l (1.12-1.32); iSTAT Potassium 3.5 mEq/L (3.3-5.0)
[2019-04-21] MEDS ORDERED: IOVERSOL 100ml IV PRN (13:10)
[2019-04-21] MEDS ORDERED: HEPARIN SOD (PORCINE) 1000 UNIT/ML 10 ML VIAL ONE (13:34)
[2019-04-21] MEDS: HEPARIN SODIUM/DEXTROSE 25,000 UNITS/500 ML BAG IV SCH (13:47)
--- NOTE | 2019-04-21 14:03 | CT Scan Report ---
CHEST CTA for PULMONARY ARTERIES CT DOSE: 273.74 mGy.cm HISTORY: Right-sided chest pain. TECHNIQUE: Multiaxial CT images of the chest were performed following the intravenous administration of contrast to evaluate the pulmonary arteries. Maximal intensity projection images were also obtaine d. A dose lowering technique was utilized adhering to the principles of ALARA. COMPARISON STUDY: None. FINDINGS: Normal caliber thoracic aorta with no evidence for dissection. The heart is normal in size. Small pericardial effusion most pronounced posteriorly. This measures up to 1.3 cm in thickness. Nor mal esophagus. No mediastinal or hilar lymphadenopathy. Mild flattening of the interventricular septu m within the heart. This suggests mild heart strain. Trace right pleural effusion. A 1.5 cm hypodense lesion within the right hepatic lobe. This favors a cyst. Surgical clips noted within the bilateral breasts. This is consistent with postoperative change. Left lower lobe segmental and subsegmental pul monary emboli. There is also a filling defects seen within the distal right main pulmonary artery whi ch extends into the right lower lobe pulmonary arteries. This is consistent with an additional embolu s. No pneumothorax. Groundglass airspace opacities within the right lower lobe posteriorly consistent with a pulmonary infarct. Small patchy densities within the left lung base could represent an additi onal infarct or atelectasis. No suspicious lytic or blastic osseous lesions. IMPRESSION: 1. Right greater than left pulmonary emboli with associated mild right-sided heart strain. 2. Ground glass density within the right lower lobe posteriorly consistent with a pulmonary infarct. 3. Small pericardial effusion and a trace right pleural effusion. 4. Additional findings as described above. ACT 112: Negative or not required by law. Electronically signed by: Andrzej Yancey M.D. 04/21/2019 2:02 PM
--- NOTE | 2019-04-21 15:45 | History & Physical Report ---
Date of Service April 21, 2019 Assessment & Plan (1) Multiple pulmonary emboli: Weight-based heparin drip per protocol Patient follows with Dr. Gooden for breast cancer Patient will be here over the weekend. Consult Dr. Gooden Tuesday morning for choice of anticoagulant Repeat chest x-ray tomorrow morning due to concern for pulmonary infarct Supplemental oxygen as needed to maintain SaO2 greater than 90% We will check a bilateral lower extremity Doppler to rule out DVT although patient has no edema and no calf pain Recent robotic hysterectomy with bilateral salpingo-oophorectomy (04/13/2019) - watch for vaginal bleeding Follow serial labs (2) Pericardial effusion: Some very mild heart strain secondary to bilateral submassive pulmonary emboli We will check echocardiogram tomorrow morning to evaluate heart strain as well as pericardial effusion No indication at this time of cardiac tamponade Follow on telemetry (3) History of carcinoma in situ of breast: Follows with Dr. Gooden -consult Tuesday Continue tamoxifen (4) Hyperlipidemia: Continue atorvastatin (5) Hypertension: Continue home meds including amlodipine and lisinopril Monitor on telemetry (6) Hypothyroidism: Continue levothyroxine Further management as an outpatient (7) Vitamin D deficiency: Continue outpatient cholecalciferol (8) Chronic reflux esophagitis: Continue home PPI of omeprazole 20 mg p.o. every morning (9) DVT prophylaxis: Patient receiving weight-based heparin protocol for pulmonary emboli Check a bilateral lower extremity Doppler to rule out DVT Ambulate as tolerated if no proximal DVT is identified Please refer to Dr. Carcamo's addendum and corrections for further recommendations History of Present Illness Primary Care Provider: Robbi Wise MD Attending: Dr. Carcamo This is a pleasant 68-year-old female with a history of bilateral breast cancer treated with lumpectomy currently on tamoxifen, osteopenia, stable carotid artery stenosis, GERD, hyperlipidemia, hypertension, hypothyroidism, vitamin D deficiency. The patient recently was found to have a 1.75 cm mass in the uterus. Due to her history of breast cancer was decided that she would undergo complete hysterectomy with bilateral salpingo-oophorectomy robotically. This was completed April 13, 2019 without complication. Patient was discharged home and was ambulating and doing well until yesterday when she noticed some shortness of breath and right-sided chest pain. Overnight and into the morning the pain persisted and she noticed that she was having more difficulty with deep breathing. She presented to the emergency department and underwent CTA and was found to have bilateral submassive pulmonary emboli without saddle emboli. There was notice of some groundglass density which may be consistent with pulmonary infarct. There was also a small pericardial effusion and trace right pleural effusion noted. Patient denies any fever. She does have tachycardia without precordial chest pain. She has no hemoptysis. She denies any lower extremity swelling or asymmetric edema. She has no pain in her calf or thighs. The patient has no other acute complaints and is not hypoxic. She is very active and is planning on going on a cruise in June to the [facility]. She is retired from [email or web address]. She has never been and has no children. Her sister accompanies her in the emergency department. Allergies Allergy/AdvReac Type Severity Reaction Status Date / Time bee venom protein (honey bee) Allergy Mild Hives Verified 04/21/19 12:02 No Known Drug Allergies Allergy Unknown . Verified 04/21/19 12:02 Home Medications Home Medications Medication Instructions Recorded Confirmed Type amlodipine 5 mg tablet 5 mg PO QAM 01/02/19 04/21/19 History cholecalciferol (vitamin D3) 3,000 3,000 units PO QAM 01/02/19 04/21/19 History unit tablet lisinopril 20 mg tablet 20 mg PO QAM 01/02/19 04/21/19 History omeprazole 20 mg capsule,delayed 20 mg PO QAM 01/02/19 04/21/19 History release tamoxifen 20 mg tablet 20 mg PO PM 01/02/19 04/21/19 History epinephrine 0.3 mg/0.3 mL 0.3 mg IM UD PRN ea 01/08/19 04/21/19 History injection, auto-injector atorvastatin [Lipitor] 80 mg PO QPM 02/06/19 04/21/19 History vitamin E 400 unit PO PM 02/06/19 04/21/19 History levothyroxine 75 mcg tablet 75 mcg PO QPM 02/08/19 04/21/19 History aspirin 81 mg PO QAM 04/02/19 04/21/19 History Past Med/Surg History Medical History (Updated 04/21/19 @ 15:40 by Yvon S. Kroner, PA-C) Carotid artery stenosis (Acute) Chronic reflux esophagitis (Acute) H/O malignant neoplasm of breast LT- Had radiation History of carcinoma in situ of breast Hyperlipidemia (Acute) Hypertension (Acute) Hypothyroidism (Acute) Intraductal carcinoma of right breast (Resolved 11/03/15) "History of prior left breast DCIS in 2003 Status post lumpectomy followed by radiation therapy. Radiation completed 01/08/2004 received 6120 cGy Abnormal right breast mammogram 10/22/2015 Status post ultrasound-guided biopsy 11/03/2015 revealing atypical papillary proliferation with atypia and at least ADH. Review of slides at [facility] showed ductal carcinoma in situ Status post mammotome biopsies of the right breast 12/29/2015 revealing benign tissue Stage pTis NXMX Estrogen receptor positive BRCA1 and BRCA2 testing negative Status post completion of radiation therapy 04/02/2016. Received 5130 cGy utilizing hypo-fractionation. Tamoxifen therapy" On 04/13/16 14:49 Alyx Hooks wrote "History of prior left breast DCIS in 2003 Status post lumpectomy followed by radiation therapy. Radiation completed 01/08/2004 received 6120 cGy Abnormal right breast mammogram 10/22/2015 Status post ultrasound-guided biopsy 11/03/2015 revealing atypical papillary proliferation with atypia and at least ADH. Review of slides at [facility] showed ductal carcinoma in situ Status post mammotome biopsies of the right breast 12/29/2015 revealing benign tissue Stage pTis NXMX Estrogen receptor positive Status post completion of radiation therapy 04/02/2016. Received 5130 cGy utilizing hypo-fractionation." On 02/19/16 10:32 Alyx Hooks wrote "History of prior left breast DCIS in 2004 Status post lumpectomy followed by radiation therapy. Radiation completed 01/08/2004 received 6120 cGy Abnormal right breast mammogram 10/22/2015 Status post ultrasound-guided biopsy 11/03/2015 revealing atypical papillary proliferation with atypia and at least ADH. Review of slides at [facility] showed ductal carcinoma in situ Status post mammotome biopsies of the right breast 12/29/2015 revealing benign tissue Stage pTis NXMX Estrogen receptor positive" Postmenopausal bleeding Temporomandibular joint disorder hx Tendonitis Vitamin D deficiency (Acute) Surgical History (Updated 04/21/19 @ 15:37 by Yvon Borrego PA-C) H/O dilation and curettage History of colonoscopy History of total hysterectomy with bilateral salpingo-oophorectomy (BSO) Robotic surgery 04/13/2019 S/P breast lumpectomy x2 Family History Aunt Breast cancer maternal aunt Father Hypertension Stroke Ischemic heart disease Mother Hypertension Stroke Hyperlipidemia Social History Preferred Language: Dutch Communication Ability: Effective Visual Impairment: No Limitations Hearing Ability: Normal International Trade 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 Required: No Beliefs That Will Affect Care: None marital status: Single Current Living Situation: Alone Feels Safe at Home: Yes Smoking Status: Never smoker Second Hand Exposure: Yes (yrs ago) ; Hx Alcohol Use: Yes Alcohol type: beer Hx Substance Use: No Seatbelt Use: always Review of Systems Review of Systems: All systems reviewed & are unremarkable except as noted in HPI & below Physical Exam Physical Exam: GENERAL : No acute distress EYES: No icterus, gaze conjugate NOSE: No evidence of epistaxis MOUTH: No lesions or candidiasis NECK: Supple LUNGS: Bilateral rales at the bases right greater than left, no rhonchi, no bronchospasm HEART: Regular, tachycardic ABDOMEN: Soft, NT, ND, BS Present EXTREMITIES: No LE edema, pedal pulses intact and equal bilaterally. No calf pain with palpation. No Homans sign. NEURO: A&OX3. Pupils equal round and reactive to light. No facial droop. Tongue midline. Strength equal and appropriate bilaterally. Results & Data Vital Signs (Past 12 Hours) Vital Signs Temp Pulse Resp BP Pulse Ox 04/21/19 14:31 118 H 23 92 04/21/19 14:30 121 H 24 139/51 L 94 04/21/19 14:01 119 H 23 94 04/21/19 14:00 120 H 24 143/58 H 94 04/21/19 13:52 118 H 19 141/63 H 95 04/21/19 13:30 120 H 23 93 04/21/19 13:20 119 H 20 93 04/21/19 13:19 122 H 21 146/64 H 95 04/21/19 13:00 120 H 21 93 01/11/20 12:30 124 H 23 93 04/21/19 12:14 129 H 23 93 04/21/19 11:42 37.2 C 141 H 20 119/53 L 100 Laboratory Results 04/21/19 12:00 04/21/19 12:00 Diagnostic Findings CHEST CTA for PULMONARY ARTERIES CT DOSE: 273.74 mGy.cm HISTORY: Right-sided chest pain. TECHNIQUE: Multiaxial CT images of the chest were performed following the intravenous administration of contrast to evaluate the pulmonary arteries. Maximal intensity projection images were also obtained. A dose lowering technique was utilized adhering to the principles of ALARA. COMPARISON STUDY: None. FINDINGS: Normal caliber thoracic aorta with no evidence for dissection. The heart is normal in size. Small pericardial effusion most pronounced posteriorly. This measures up to 1.3 cm in thickness. Normal esophagus. No mediastinal or hilar lymphadenopathy. Mild flattening of the interventricular septum within the heart. This suggests mild heart strain. Trace right pleural effusion. A 1.5 cm hypodense lesion within the right hepatic lobe. This favors a cyst. Surgical clips noted within the bilateral breasts. This is consistent with postoperative change. Left lower lobe segmental and subsegmental pulmonary emboli. There is also a filling defects seen within the distal right main pulmonary artery which extends into the right lower lobe pulmonary arteries. This is consistent with an additional embolus. No pneumothorax. Groundglass airspace opacities within the right lower lobe posteriorly consistent with a pulmonary infarct. Small patchy d ensities within the left lung base could represent an additional infarct or atelectasis. No suspicious lytic or blastic osseous lesions. IMPRESSION: 1. Right greater than left pulmonary emboli with associated mild right-sided heart strain. 2. Ground glass density within the right lower lobe posteriorly consistent with a pulmonary infarct. 3. Small pericardial effusion and a trace right pleural effusion. 4. Additional findings as described above. ACT 112: Negative or not required by law. Electronically signed by: Andrzej Yancey M.D. 04/21/2019 2:02 PM Code Status & VTE Plan Code Status Full resuscitation VTE Prophylaxis Plan VTE Prophylaxis will be ordered: Yes Supervising Physician Co-Signing Physician Notes Patient seen and examined in the emergency room. Agree with PADasiaC note above. Patient is a 68-year-old female with history of bilateral breast cancer on tamoxifen. She had a recent SAH/BERNARDO and was otherwise doing well from this. In the morning patient had some shortness of breath and right-sided chest pain that started yesterday. This persisted through the morning. Patient noticed that she was having some difficulty with deep breathing along with with some mi ld pleuritic pain. She presents to the emergency room was found to be tachycardic. CT angiogram subsequently found that the patient had bilateral pulmonary embolism. Patient is now being managed for this reason. Exam reveals heart is tacky but regular. Lungs are clear to auscultation. Abdomen soft, nontender, nondistended. Remainder exam is as noted above. CT scan confirms presence of bilateral PE with a question of "mild right-sided heart strain ". Is a patient's vital signs are stable, will admit her here for now. She is IV heparin which she will continue. Check 2D echo. She appears to be stable from a symptom standpoint as well as her vital signs. She is mildly hypertensive but is been so for a while per old records. We will consult her oncologist for further recommendations. 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 PG Care Time/CCT Total # of Minutes Spent Total Time Spent with Patient: Total time spent is greater than 50% in coordination of care (as documented) at patient's floor/unit and/or counseling patient: 45 minutes
[2019-04-21] MEDS ORDERED: POLYETHYLENE (MIRALAX) 17 GM PACK PO PRN (16:36)
[2019-04-21] MEDS ORDERED: ALUMINUM/MAGNESIUM SUSP 30 ML UDC PO PRN (16:36)
[2019-04-21] MEDS ORDERED: ONDANSETRON INJ 2 MG/ML 2 ML VIAL IV PRN (16:36)
[2019-04-21] MEDS ORDERED: MAGNESIUM HYDROXIDE SUSP 30 ML UDC PO PRN (16:36)
[2019-04-21] MEDS ORDERED: HEPARIN SODIUM/DEXTROSE 25,000 UNITS/500 ML BAG IV SCH (16:36)
[2019-04-21] MEDS ORDERED: Heparin IV Standard *NO* Bolus IV ONE (16:36)
[2019-04-21] MEDS: ACETAMINOPHEN 325 MG TAB PO PRN (17:35)
[2019-04-21 17:47] LABS: Appearance Urine Clear (Clear); Bacteria Urine Automated Negative (Negative); Bilirubin Urine Negative (Negative); Blood Urine 1+ (Negative); Color Urine Yellow; Epithelial Cell Urine Auto >30 /lpf (0-5); Glucose Urine UA 1+ (Negative); Ketones Urine 1+ (Negative); Leukocyte Esterase Urine Negative (Negative); Nitrite Urine Negative (Negative); Protein Urine Trace (Negative); Specific Gravity Urine > 1.045 (1.000-1.030); Urobilinogen Urine Negative (Negative); pH Urine 5.5 (4.5-7.5)
--- NOTE | 2019-04-21 18:04 | Emergency Department Note ---
Entered by Matilda Paris acting as a scribe for Javad Edwards MD History of Present Illness General Chief complaint: Chest Pain Stated complaint: CHEST PAIN Time Seen by Provider: 04/21/19 12:00 Source: patient History of Present Illness Provider complaint: chest pain Onset (ago): day(s) 1 Location: chest and right Radiation: back and other (right shoulder) Quality: + sharp Exacerbated By: + other (deep breaths) Associated symptoms: + cough, + fever/chills, + shortness of breath and + other (-leg swelling) The patient is a 68 year old female who presents to the Emergency Room with complaints of right sided chest pain that started last night. The patient states that the pain radiated to her right shoulder and right upper back. She notes that she had shortness of breath. She reports that her chest pain worsens with deep breaths. The patient notes that the pain is sharp. She reports that she had a fever of 100.6 last night and took Advil which relieved it. She notes that she had been coughing. She denies any leg swelling. She denies any past similar chest pain. She denies any previous kidney problems or blood clots. She mentions that she takes blood pressure medication and Aspirin. She did have a hysterectomy earlier this month. She states she is recovering well from this. She denies any significant abdominal pain. Home Medications Home Medications Medication Instructions Recorded Confirmed Type amlodipine 5 mg tablet 5 mg PO QAM 01/02/19 04/21/19 History cholecalciferol (vitamin D3) 3,000 3,000 units PO QAM 01/02/19 04/21/19 History unit tablet lisinopril 20 mg tablet 20 mg PO QAM 01/02/19 04/21/19 History omeprazole 20 mg capsule,delayed 20 mg PO QAM 01/02/19 04/21/19 History release tamoxifen 20 mg tablet 20 mg PO PM 01/02/19 04/21/19 History epinephrine 0.3 mg/0.3 mL 0.3 mg IM UD PRN ea 01/08/19 04/21/19 History injection, auto-injector atorvastatin [Lipitor] 80 mg PO QPM 02/06/19 04/21/19 History vitamin E 400 unit PO PM 02/06/19 04/21/19 History levothyroxine 75 mcg tablet 75 mcg PO QPM 02/08/19 04/21/19 History aspirin 81 mg PO QAM 04/02/19 04/21/19 History Allergies Allergy/AdvReac Type Severity Reaction Status Date / Time bee venom protein (honey bee) Allergy Mild Hives Verified 04/21/19 12:02 No Known Drug Allergies Allergy Unknown . Verified 04/21/19 12:02 Past Med/Surg History Medical History Carotid artery stenosis (Acute) Chronic reflux esophagitis (Acute) H/O malignant neoplasm of breast LT- Had radiation History of carcinoma in situ of breast Hyperlipidemia (Acute) Hypertension (Acute) Hypothyroidism (Acute) Intraductal carcinoma of right breast (Resolved 11/03/15) "History of prior left breast DCIS in 2003 Status post lumpectomy followed by radiation therapy. Radiation completed 01/08/2004 received 6120 cGy Abnormal right breast mammogram 10/22/2015 Status post ultrasound-guided biopsy 11/03/2015 revealing atypical papillary proliferation with atypia and at least ADH. Review of slides at [place] showed ductal carcinoma in situ Status post mammotome biopsies of the right breast 12/29/2015 revealing benign tissue Stage pTis NXMX Estrogen receptor positive BRCA1 and BRCA2 testing negative Status post completion of radiation therapy 04/02/2016. Received 5130 cGy utilizing hypo-fractionation. Tamoxifen therapy" On 04/13/16 14:49 Alyx Hooks wrote "History of prior left breast DCIS in 2003 Status post lumpectomy followed by radiation therapy. Radiation completed 01/08/2004 received 6120 cGy Abnormal right breast mammogram 10/22/2015 Status post ultrasound-guided biopsy 11/03/2015 revealing atypical papillary proliferation with atypia and at least ADH. Review of slides at [place] showed ductal carcinoma in situ Status post mammotome biopsies of the right breast 12/29/2015 revealing benign tissue Stage pTis NXMX Estrogen receptor positive Status post completion of radiation therapy 04/02/2016. Received 5130 cGy utilizing hypo-fractionation." On 02/19/16 10:32 Alyx Hooks wrote "History of prior left breast DCIS in 2003 Status post lumpectomy followed by radiation therapy. Radiation completed 01/08/2004 received 6120 cGy Abnormal right breast mammogram 10/22/2015 Status post ultrasound-guided biopsy 11/03/2015 revealing atypical papillary proliferation with atypia and at least ADH. Review of slides at [place] showed ductal carcinoma in situ Status post mammotome biopsies of the right breast 12/29/2015 revealing jose gn tissue Stage pTis NXMX Estrogen receptor positive" Postmenopausal bleeding Temporomandibular joint disorder hx Tendonitis Vitamin D deficiency (Acute) Surgical History H/O dilation and curettage History of colonoscopy History of total hysterectomy with bilateral salpingo-oophorectomy (BSO) Robotic surgery 04/13/2019 S/P breast lumpectomy x2 Family History Aunt Breast cancer maternal aunt Father Hypertension Stroke Ischemic heart disease Mother Hypertension Stroke Hyperlipidemia Social History Preferred Language: Filipino Communication Ability: Effective Visual Impairment: No Limitations Hearing Ability: Normal Float Nurse Required: No Beliefs That Will Affect Care: None marital status: Single Current Living Situation: Alone Feels Safe at Home: Yes Smoking Status: Never smoker Second Hand Exposure: Yes (yrs ago) ; Hx Alcohol Use: Yes Alcohol type: beer Hx Substance Use: No Seatbelt Use: always Review of Systems See HPI for pertinent positives & negatives. and A total of 10 systems reviewed and were otherwise negative Physical Exam Vital Signs Vital Signs - 24 hr 04/21/19 11:42 04/21/19 11:56 04/21/19 12:14 Temperature 37.2 C Temperature Source Oral Pulse Rate 141 H 129 H Pulse Rate from SpO2 Sensor 129 H Respiratory Rate 20 23 Respiratory Effort / Characteristics Non-Labored Spontaneous Respiratory Depth Normal Respiratory Pattern Regular Blood Pressure 119/53 L Blood Pressure Mean 75 Blood Pressure Position Sitting Pulse Oximetry 100 93 Oxygen Delivery Method Room Air Room Air Sepsis Recent Fever Within 48 Hours No Sepsis New/Unexplained Change in Mental Status No Sepsis Action Taken by Nursing No Action Required 04/21/19 12:30 04/21/19 13:00 04/21/19 13:19 Temperature Temperature Source Pulse Rate 124 H 120 H 122 H Pulse Rate from SpO2 Sensor 124 H 121 H 123 H Respiratory Rate 23 21 21 Respiratory Effort / Characteristics Respiratory Depth Respiratory Pattern Blood Pressure 146/64 H Blood Pressure Mean 102 Blood Pressure Position Pulse Oximetry 93 93 95 Oxygen Delivery Method Sepsis Recent Fever Within 48 Hours Sepsis New/Unexplained Change in Mental Status Sepsis Action Taken by Nursing 04/21/19 13:20 04/21/19 13:30 04/21/19 13:52 Temperature Temperature Source Pulse Rate 119 H 120 H 118 H Pulse Rate from SpO2 Sensor 119 H 120 H 118 H Respiratory Rate 20 23 19 Respiratory Effort / Characteristics Respiratory Depth Respiratory Pattern Blood Pressure 141/63 H Blood Pressure Mean 98 Blood Pressure Position Pulse Oximetry 93 93 95 Oxygen Delivery Method Room Air Sepsis Recent Fever Within 48 Hours Sepsis New/Unexplained Change in Mental Status Sepsis Action Taken by Nursing 04/21/19 14:00 04/21/19 14:01 04/21/19 14:30 Temperature Temperature Source Pulse Rate 120 H 119 H 121 H Pulse Rate from SpO2 Sensor 117 H 118 H 121 H Respiratory Rate 24 23 24 Respiratory Effort / Characteristics Respiratory Depth Respiratory Pattern Blood Pressure 143/58 H 139/51 L Blood Pressure Mean 97 88 Blood Pressure Position Pulse Oximetry 94 94 94 Oxygen Delivery Method Room Air Room Air Sepsis Recent Fever Within 48 Hours Sepsis New/Unexplained Change in Mental Status Sepsis Action Taken by Nursing 04/21/19 14:31 04/21/19 15:00 Temperature Temperature Source Pulse Rate 118 H 129 H Pulse Rate from SpO2 Sensor 118 H Respiratory Rate 23 21 Respiratory Effort / Characteristics Respiratory Depth Respiratory Pattern Blood Pressure 143/60 H Blood Pressure Mean 100 Blood Pressure Position Pulse Oximetry 92 Oxygen Delivery Method Sepsis Recent Fever Within 48 Hours Sepsis New/Unexplained Change in Mental Status Sepsis Action Taken by Nursing Constitutional: Vital signs reviewed. Tachycardic with rate of 135. Eyes: Pupils are equal round reactive to light. Conjunctiva are noninjected. ENT: Pharynx is clear without erythema or exudate. Mucous membranes are moist. Neck supple without meningeal signs. Respiratory: Crackles right base. Breath sounds are equal bilaterally. Cardiovascular: Regular rate and rhythm. No rubs or gallops. GI: Laparoscopy scaring intact without infection with mild tenderness. Soft and nondistended. Bowel sounds are present. Musculoskeletal: No peripheral edema. No lower extremity tenderness. Integumentary: No cyanosis. Neurological: The patient is awake and alert. No focal deficits. Psychiatric: Normal affect. Course Course 1202: The patient was evaluated in room B9, and a complete history and physical examination were performed. 1307: I reassessed the patient and she will be going to CAT scan. The patient's D-dimer is elevated. 1328: I discussed the patient's test results with her. The patient's heart rate is 119 and her blood pressure is within normal limits. The patient declined any pain medication and I discussed the risks and benefits or IV Heparin. [facility] FLEET SERVICE MANAGER will be paged. 1330: I discussed the patient's case with Dr. Champagne- [facility] FLEET SERVICE MANAGER, he states that there are no issues with IV Heparin and he inform Dr. Archibald- [facility] FLEET SERVICE MANAGER. 1409: I discussed the patient's case with Donald Medina PA-C [facility], Dr. Darren Martin- [facility] Hospitalist will accept the patient for further evaluation. 1420: I reassessed the patient on IV Heparin, her vital signs are unchanged. Administered Medications Acetaminophen (Tylenol) 650 mg PO Q4H PRN PRN Reason: Pain or Fever Stop: 05/21/19 16:35 Last Admin: 04/21/19 17:35 Dose: 650 mg Documented by: [id number] Heparin Sodium/Dextrose (Heparin Sodium/Dextrose) 25,000 units in 500 mls @ 20 mls/hr IV .Q24H RADHA; Protocol Stop: 05/21/19 13:29 Last Titration: 04/21/19 16:40 Dose: 1,000 units/hr, 20 mls/hr Documented by: [id number] Cosigned by: [id number] Admin: 04/21/19 13:47 Dose: 1,000 units/hr, 20 mls/hr Documented by: [id number] Cosigned by: [id number] Ioversol (Optiray 320 100ml) 93 ml IV ONCE PRN PRN Reason: Interaction Checking Stop: 04/25/19 13:09 Last Admin: 04/21/19 13:11 Dose: 93 ml Documented by: [id number] Discontinued Medications Heparin Sodium (Porcine) (Heparin Iv Bolus) Confirm Administered Dose 10,000 units .ROUTE .STK-MED ONE Stop: 04/21/19 13:35 Last Admin: 04/21/19 13:46 Dose: 4,000 units Documented by: [id number] Cosigned by: [id number] Heparin Sodium/Dextrose () 1 ea IV NOW STA; Protocol Stop: 04/21/19 13:24 Last Admin: 04/21/19 13:48 Dose: Not Given Documented by: [id number] Critical Care Time Critical Care Time: Yes Total Critical Care Time: 35 I have personally spent approximately 35 minutes of critical care time in the direct management of this patient. This includes bedside care, interpretation of diagnostic studies, and testing, discussion with consultants, patient, and family members, and other required patient management activities. This 35 minutes is in excess of all separately billable procedures. Medical Decision Making Differential Diagnosis Differential diagnoses include but are not limited to PE, unstable angina, NH, PNA, and sepsis. Medical Records Attestation: I reviewed the patient's medical records. I did perform a limited focused review of portions of the patient's old chart on the electronic medical record. The patient was admitted here earlier this month on the for post-menopausal bleeding. The patient had a hysterectomy at that time. Home Medications Current Medication List: was personally reviewed by me Laboratory Data Attestation: I reviewed the patient's lab results. Result diagrams: 04/21/19 12:00 04/21/19 12:00 Lab Results 04/21/19 04/21/19 04/21/19 Range/Units 12:00 12:00 12:00 WBC 14.51 H (4.8-10.8) K/uL RBC 4.28 (4.2-5.4) M/uL Hgb 12.4 (12.0-16.0) g/dL POC Hgb (12.0-16.0) g/dl Hct 37.4 (37-47) % POC Hct (37-47) % MCV 87.4 (80-100) fL MCH 29.0 (25-34) pg MCHC 33.2 (32-36) g/dL RDW Std Deviation 43.0 (36.4-46.3) fL RDW Coeff of Felix 13.5 (11.5-14.5) % Plt Count 213 (130-400) K/uL MPV 10.3 (7.4-10.4) fL Immature Gran % (Auto) 0.3 % Neut % (Auto) 86.2 % Lymph % (Auto) 6.3 % [place] % (Auto) 7.0 % Eos % (Auto) 0.1 % Baso % (Auto) 0.1 % Immature Gran # (Auto) 0.04 H (0.00-0.02) K/uL Neut # (Auto) 12.50 H (1.4-6.5) K/uL Lymph # (Auto) 0.92 L (1.2-3.4) K/uL [place] # (Auto) 1.01 H (0.11-0.59) K/uL Eos # (Auto) 0.02 (0-0.5) K/uL Baso # (Auto) 0.02 (0-0.2) K/uL PT 10.8 (9.0-12.0) Seconds INR 1.1 (0.9-1.1) APTT 27.1 (21.0-31.0) Seconds PTT Ratio 1.0 POC D-Dimer (0-450) ng/mlFEU POC Sodium (135-144) mEq/L Sodium 138 (136-145) mmol/L POC Potassium (3.3-5.0) mEq/L Potassium 3.4 L (3.5-5.1) mmol/L POC Chloride (101-112) mEq/L Chloride 107 (98-107) mmol/L Carbon Dioxide 23 (21-32) mmol/L POC Total CO2 (24-31) mEq/l Anion Gap 8.0 (3-11) POC Anion Gap (16-25) mmol/L POC BUN (7-18) mg/dl BUN 16 (7-18) mg/dl Creatinine 1.07 (0.6-1.2) mg/dl POC Creatinine (0.6-1.3) mg/dl Est Cr Clr Drug Dosing 43.9 ml/min Est GFR ( Amer) 61.8 Est GFR (Non-Af Amer) 53.3 BUN/Creatinine Ratio 15.3 (10-20) Glucose 136 H (70-99) mg/dl POC Glucose (other) (70-99) mg/dl Calcium 9.1 (8.5-10.1) mg/dl POC Ioniz Calcium Lucía (1.12-1.32) mmol/l Total Bilirubin 0.7 (0.2-1) mg/dl AST 19 (15-37) U/L ALT 33 (12-78) U/L Alkaline Phosphatase 61 (45-117) U/L POC Troponin I (0-0.045) ng/ml Troponin I < 0.015 (0-0.045) ng/ml Total Protein 7.2 (6.4-8.2) gm/dl Albumin 2.9 L (3.4-5.0) gm/dl Globulin 4.3 H (2.5-4.0) gm/dl Albumin/Globulin Ratio 0.7 L (0.9-2) 04/21/19 04/21/19 Range/Units 12:23 12:23 WBC (4.8-10.8) K/uL RBC (4.2-5.4) M/uL Hgb (12.0-16.0) g/dL POC Hgb 11.2 L (12.0-16.0) g/dl Hct (37-47) % POC Hct 33 L (37-47) % MCV (80-100) fL MCH (25-34) pg MCHC (32-36) g/dL RDW Std Deviation (36.4-46.3) fL RDW Coeff of Felix (11.5-14.5) % Plt Count (130-400) K/uL MPV (7.4-10.4) fL Immature Gran % (Auto) % Neut % (Auto) % Lymph % (Auto) % [place] % (Auto) % Eos % (Auto) % Baso % (Auto) % Immature Gran # (Auto) (0.00-0.02) K/uL Neut # (Auto) (1.4-6.5) K/uL Lymph # (Auto) (1.2-3.4) K/uL [place] # (Auto) (0.11-0.59) K/uL Eos # (Auto) (0-0.5) K/uL Baso # (Auto) (0-0.2) K/uL PT (9.0-12.0) Seconds INR (0.9-1.1) APTT (21.0-31.0) Seconds PTT Ratio POC D-Dimer > 450 H* (0-450) ng/mlFEU POC Sodium 137 (135-144) mEq/L Sodium (136-145) mmol/L POC Potassium 3.5 (3.3-5.0) mEq/L Potassium (3.5-5.1) mmol/L POC Chloride 105 (101-112) mEq/L Chloride (98-107) mmol/L Carbon Dioxide (21-32) mmol/L POC Total CO2 21 L (24-31) mEq/l Anion Gap (3-11) POC Anion Gap 15.0 L (16-25) mmol/L POC BUN 15 (7-18) mg/dl BUN (7-18) mg/dl Creatinine (0.6-1.2) mg/dl POC Creatinine 1.0 (0.6-1.3) mg/dl Est Cr Clr Drug Dosing ml/min Est GFR ( Amer) Est GFR (Non-Af Amer) BUN/Creatinine Ratio (10-20) Glucose (70-99) mg/dl POC Glucose (other) 134 H (70-99) mg/dl Calcium (8.5-10.1) mg/dl POC Ioniz Calcium Lucía 1.19 (1.12-1.32) mmol/l Total Bilirubin (0.2-1) mg/dl AST (15-37) U/L ALT (12-78) U/L Alkaline Phosphatase (45-117) U/L POC Troponin I < 0.03 (0-0.045) ng/ml Troponin I (0-0.045) ng/ml Total Protein (6.4-8.2) gm/dl Albumin (3.4-5.0) gm/dl Globulin (2.5-4.0) gm/dl Albumin/Globulin Ratio (0.9-2) Imaging Data Radiologist's Impression: Radiology results as stated below per my review and the radiologist's interpretation: CHEST CTA for PULMONARY ARTERIES CT DOSE: 273.74 mGy.cm HISTORY: Right-sided chest pain. TECHNIQUE: Multiaxial CT images of the chest were performed following the intravenous administration of contrast to evaluate the pulmonary arteries. Maximal intensity projection images were also obtained. A dose lowering technique was utilized adhering to the principles of ALARA. COMPARISON STUDY: None. FINDINGS: Normal caliber thoracic aorta with no evidence for dissection. The heart is normal in size. Small pericardial effusion most pronounced posteriorly. This measures up to 1.3 cm in thickness. Normal esophagus. No mediastinal or hilar lymphadenopathy. Mild flattening of the interventricular septum within the heart. This suggests mild heart strain. Trace right pleural effusion. A 1.5 cm hypodense lesion within the right hepatic lobe. This favors a cyst. Surgical clips noted within the bilateral breasts. This is consistent with postoperative change. Left lower lobe segmental and subsegmental pulmonary emboli. There is also a filling defects seen within the distal right main pulmonary artery which extends into the right lower lobe pulmonary arteries. This is consistent with an additional embolus. No pneumothorax. Groundglass airspace opacities within the right lower lobe posteriorly consistent with a pulmonary infarct. Small patchy densities within the left lung base could represent an additional infarct or atelectasis. No suspicious lytic or blastic osseous lesions. IMPRESSION: 1. Right greater than left pulmonary emboli with associated mild right-sided heart strain. 2. Ground glass density within the right lower lobe posteriorly consistent with a pulmonary infarct. 3. Small pericardial effusion and a trace right pleural effusion. 4. Additional findings as described above. ACT 112: Negative or not required by law. Electronically signed by: Andrzej Yancey M.D. 04/21/2019 2:02 PM ECG Data Attestation: I personally reviewed and interpreted this ECG as follows: Indication: + chest pain Rate (beats per minute): 129 Rhythm: + sinus tachycardia ECG ST segments: + ST depression (high lateral and lateral leads); no ST elevation ECG Findings: + Q waves (lead 3 ); no PVCs Blood Pressure Blood Pressure Findings: Normal blood pressure Blood Pressure Disposition: did not require urgent referral MDM Narrative I did evaluate the patient as noted above. The patient is presenting with sudden onset of chest pain and shortness of breath since yesterday. She is tachycardic here in the emergency department. She just had surgery and I was concerned about a PE. IV access was established. The patient was placed on a continuous employee relations manager. I did order and personally review the patient's 12- lead EKG as described above. She has some ST depressions and Q waves. She has tachycardia. I did order and review the patient's blood work as noted in the electronic medical record. D-dimer is elevated. Potassium is 3.4. Creatinine is within normal limits. Troponin is negative. I did order a CT angiogram of the chest. I did review the images myself as well as the radiology report as described above. She has multiple pulmonary emboli. There is also evidence of right heart strain as well as a right lower lobe pulmonary infarct. I did discuss the test results with the patient. She remains tachycardic but her heart rate has come down. She does not want anything for her pain. I did discuss risks and benefits of IV heparin. I did start her on an IV heparin drip with a bolus. I did discuss the case with the liturgical music director on-call. I also discussed the case with the hospitalist and test case developer. Impression & Plan Pulmonary infarction, Multiple pulmonary emboli, Pericardial effusion Discharge Plan Visit Data *Final* Discharge Date/Time: 04/21/19 16:09 Chief Complaint: Chest Pain Stated Complaint: CHEST PAIN ED Provider: Javad Edwards Discharge Problem: Pulmonary infarction, Multiple pulmonary emboli, Pericardial effusion Patient Disposition: Admitted As Inpatient Discharge Instructions Interventions: ED Discharge Assessment Last Done: 04/21/19 16:09 The scribe's documentation has been prepared under my direction and personally reviewed by me in its entirety. I confirm that the note above accurately reflects all work, treatment, procedures, and medical decision making performed by me.
--- NOTE | 2019-04-21 19:05 | Ultrasound Report ---
BILATERAL LOWER EXTREMITY VENOUS DOPPLER CLINICAL HISTORY: Submassive PE; R/O DVT COMPARISON STUDY: No previous studies for comparison. TECHNIQUE: Sonography of the deep venous system of the bilateral lower extremities was performed. Co mpression and augmentation were evaluated. FINDINGS: The bilateral common femoral, superficial femoral and popliteal veins were compressible. A ugmentation was normal. Flow was shown within the deep calf vessels. IMPRESSION: No evidence of deep venous thrombus within the bilateral lower extremities. ACT 112: Negative or not required by law. Electronically signed by: Sanford Taylor M.D. 04/21/2019 7:04 PM
[2019-04-21 20:18] LABS: Partial Thromboplastin Ratio 3.6
[2019-04-21 20:22] LABS: Partial Thromboplastin Time 97.1 Seconds (21.0-31.0)
[2019-04-21] MEDS: TAMOXIFEN CITRATE 10 MG TABLET PO SCH (20:49)
[2019-04-21] MEDS: ATORVASTATIN 40 MG TAB PO SCH (20:50)
[2019-04-21] MEDS: LEVOTHYROXINE SODIUM 75 MCG TABLET PO SCH (20:50)
[2019-04-21] MEDS: TOCOPHERYL, DL-ALPHA 400 UNITS CAP PO SCH (20:50)
[2019-04-22 02:37] LABS: Basophils # (auto) 0.02 K/uL (0-0.2); Basophils % (auto) 0.2 %; Eosinophils # (auto) 0.03 K/uL (0-0.5); Eosinophils % (auto) 0.2 %; Hematocrit (blood only) 32.9 % (37-47); Immature Granulocytes # (auto) 0.03 K/uL (0.00-0.02); Immature Granulocytes % (auto) 0.2 %; Lymphocytes # (auto) 1.15 K/uL (1.2-3.4); Lymphocytes % (auto) 9.5 %; Mean Corpuscular Hemoglobin 28.6 pg (25-34); Mean Corpuscular Hgb Conc 33.4 g/dL (32-36); Mean Corpuscular Volume 85.7 fL (80-100); Mean Platelet Volume 9.7 fL (7.4-10.4); Monocytes # (auto) 1.13 K/uL (0.11-0.59); Monocytes % (auto) 9.3 %; Neutrophils # (auto) 9.79 K/uL (1.4-6.5); Neutrophils % (auto) 80.6 %; Platelet Count 220 K/uL (130-400); RDW Coefficient of Variation 13.9 % (11.5-14.5); RDW Standard Deviation 43.6 fL (36.4-46.3); Red Blood Count 3.84 M/uL (4.2-5.4); White Blood Count 12.15 K/uL (4.8-10.8)
[2019-04-22 02:55] LABS: BUN Creatinine Ratio 17.3 (10-20); Calcium 8.7 mg/dl (8.5-10.1); Creatinine Clr Calc Pharmacy 54.4 ml/min; Est GFR (African American) 80.5; Est GFR (Non-African American) 69.4; Potassium 3.7 mmol/L (3.5-5.1)
[2019-04-22 03:03] LABS: Partial Thromboplastin Ratio 2.5
[2019-04-22 03:06] LABS: Partial Thromboplastin Time 66.7 Seconds (21.0-31.0)
[2019-04-22] MEDS: ACETAMINOPHEN 325 MG TAB PO PRN ×3 (04:38→23:44)
--- NOTE | 2019-04-22 05:59 | Electrocardiogram Report ---
Test Reason : Blood Pressure : / mmHG Vent. Rate : 129 BPM Atrial Rate : 129 BPM P-R Int : 144 ms QRS Dur : 090 ms QT Int : 304 ms P-R-T Axes : 054 020 010 degrees QTc Int : 445 ms Sinus tachycardia Possible Left atrial enlargement Nonspecific ST abnormality Abnormal ECG When compared with ECG of 01-FEB-2019 11:27, Nonspecific T wave abnormality now evident in Inferior leads Confirmed by Brandon Schilling ([id number]) on 04/22/2019 5:59:18 AM Referred By: REFERRED SELF Confirmed By:Brandon Schilling
[2019-04-22 06:54] LABS: Partial Thromboplastin Ratio 2.2
[2019-04-22 07:00] LABS: Partial Thromboplastin Time 58.5 Seconds (21.0-31.0)
--- NOTE | 2019-04-22 07:39 | XRay Report ---
XR chest 1V portable CLINICAL HISTORY: Pulmonary embolism COMPARISON STUDY: Chest CT dated 04/21/2019 FINDINGS: The heart is borderline enlarged. There are right lower lobe airspace opacities correspondi ng to the groundglass opacities described on the recent CT scan. Given the history this could represe nt evidence of a pulmonary infarct. Linear left basilar opacities are likely atelectatic. There are n o significant pleural effusions. There is no pneumothorax. There is no failure.[ IMPRESSION: Persistent right lower lobe airspace opacities. While nonspecific, this could represent e vidence of a pulmonary infarct given the prior CT findings ACT 112: Negative or not required by law. Electronically signed by: Donnell Ward M.D. 04/22/2019 7:37 AM
[2019-04-22] MEDS: ASPIRIN 81 MG ECTAB PO SCH (08:32)
[2019-04-22] MEDS: lisinopriL 20 MG TAB PO SCH (08:33)
[2019-04-22] MEDS: CHOLECALCIFEROL 1,000 UNITS TAB PO SCH (08:33)
[2019-04-22] MEDS: PANTOprazole 40 MG TAB PO SCH (08:33)
[2019-04-22] MEDS: AMLODIPINE BESYLATE 5 MG TAB PO SCH (08:33)
--- NOTE | 2019-04-22 09:02 | Hospitalist Progress Note ---
Date of Service April 22, 2019 Assessment & Plan (1) Multiple pulmonary emboli: Continue heparin drip for now. Patient remains hemodynamically stable. Await 2D echo results. Awaiting hematology evaluation. Suspect patient will be here another 24 hours. (2) Pericardial effusion: Await 2D echo (3) History of carcinoma in situ of breast: (4) Hyperlipidemia: (5) Hypertension: (6) Hypothyroidism: (7) Vitamin D deficiency: (8) Chronic reflux esophagitis: (9) DVT prophylaxis: Subjective Patient tells me she is feeling less short of breath today. O2 sat is 93% on room air. Pulse is also improved and blood pressure remained stable. Patient denies palpitations, chest pain, or other significant issues. 2D echo was performed this morning results are still pending. Patient is tolerating heparin drip well without any bleeding. Physical Exam Constitutional: cooperative; no acute distress Neck: trachea midline, no thyromegaly Respiratory: normal respiratory effort Auscultation: lungs clear to auscultation bilaterally; no crackles, no rales, no rhonchi and no wheezes Cardiovascular: Rate/Rhythm: regular rate, regular rhythm and + tachycardic Heart Sounds: normal S1 and normal S2 Gastrointestinal (Abdomen): Inspection/Auscultation: abdomen normal to ins pection Percussion/Palpation: abdomen soft; abdomen nontender, no guarding, abdomen not rigid and no hepatosplenomegaly Skin: no rashes, warm and dry Results & Data Vital Signs (Past 12 Hours) Vital Signs Temp Pulse Pulse Resp BP Pulse Ox 04/22/19 08:32 37.1 C 99 H 19 122/73 93 04/22/19 07:00 96 H 04/22/19 04:28 37.9 C H 108 H 20 126/78 93 04/21/19 23:53 98 H 04/21/19 22:21 37.1 C 103 H 20 116/71 93 PG Care Time/CCT Total # of Minutes Spent Total Time Spent with Patient: Total time spent is greater than 50% in coordination of care (as documented) at patient's floor/unit and/or counseling patient:
[2019-04-22 09:46] LABS: Partial Thromboplastin Ratio 2.7
[2019-04-22 09:54] LABS: Partial Thromboplastin Time 73.5 Seconds (21.0-31.0)
[2019-04-22 16:16] LABS: Partial Thromboplastin Ratio 1.9
[2019-04-22 16:17] LABS: Partial Thromboplastin Time 51.9 Seconds (21.0-31.0)
[2019-04-22] MEDS: HEPARIN SODIUM/DEXTROSE 25,000 UNITS/500 ML BAG IV SCH (17:20)
[2019-04-22] MEDS: LEVOTHYROXINE SODIUM 75 MCG TABLET PO SCH (21:03)
[2019-04-22] MEDS: TOCOPHERYL, DL-ALPHA 400 UNITS CAP PO SCH (21:03)
[2019-04-22] MEDS: ATORVASTATIN 40 MG TAB PO SCH (21:04)
[2019-04-22] MEDS: TAMOXIFEN CITRATE 10 MG TABLET PO SCH (21:04)
--- NOTE | 2019-04-22 21:53 | Electrocardiogram Report ---
Test Reason : Blood Pressure : / mmHG Vent. Rate : 100 BPM Atrial Rate : 100 BPM P-R Int : 128 ms QRS Dur : 094 ms QT Int : 356 ms P-R-T Axes : 083 064 066 degrees QTc Int : 459 ms Normal sinus rhythm Normal ECG When compared with ECG of 21-APR-2019 11:47, Nonspecific T wave abnormality no longer evident in Inferior leads Confirmed by Brandon Schilling ([id number]) on 04/22/2019 9:52:59 PM Referred By: REFERRED SELF Confirmed By:Brandon Schilling
[2019-04-23 06:49] LABS: Basophils # (auto) 0.01 K/uL (0-0.2); Basophils % (auto) 0.1 %; Eosinophils # (auto) 0.07 K/uL (0-0.5); Eosinophils % (auto) 0.5 %; Hematocrit (blood only) 33.9 % (37-47); Hemoglobin 11.1 g/dL (12.0-16.0); Immature Granulocytes # (auto) 0.03 K/uL (0.00-0.02); Immature Granulocytes % (auto) 0.2 %; Lymphocytes # (auto) 1.21 K/uL (1.2-3.4); Mean Corpuscular Hemoglobin 28.5 pg (25-34); Mean Corpuscular Hgb Conc 32.7 g/dL (32-36); Mean Corpuscular Volume 86.9 fL (80-100); Mean Platelet Volume 10.6 fL (7.4-10.4); Monocytes # (auto) 0.95 K/uL (0.11-0.59); Monocytes % (auto) 7.1 %; Neutrophils # (auto) 11.12 K/uL (1.4-6.5); Neutrophils % (auto) 83.1 %; Platelet Count 250 K/uL (130-400); RDW Coefficient of Variation 13.9 % (11.5-14.5); RDW Standard Deviation 44.3 fL (36.4-46.3); White Blood Count 13.39 K/uL (4.8-10.8)
[2019-04-23 07:08] LABS: Partial Thromboplastin Ratio 1.9
[2019-04-23 07:15] LABS: Partial Thromboplastin Time 50.3 Seconds (21.0-31.0)
[2019-04-23 07:25] LABS: BUN Creatinine Ratio 14.8 (10-20); Calcium 9.3 mg/dl (8.5-10.1); Creatinine Clr Calc Pharmacy 50.4 ml/min; Est GFR (African American) 73.6; Est GFR (Non-African American) 63.5; Potassium 3.7 mmol/L (3.5-5.1)
[2019-04-23] MEDS: lisinopriL 20 MG TAB PO SCH (09:25)
[2019-04-23] MEDS: ASPIRIN 81 MG ECTAB PO SCH (09:25)
[2019-04-23] MEDS: CHOLECALCIFEROL 1,000 UNITS TAB PO SCH (09:25)
[2019-04-23] MEDS: AMLODIPINE BESYLATE 5 MG TAB PO SCH (09:26)
[2019-04-23] MEDS: PANTOprazole 40 MG TAB PO SCH (09:26)
--- NOTE | 2019-04-23 10:03 | Electrocardiogram Report ---
Test Reason : Blood Pressure : / mmHG Vent. Rate : 103 BPM Atrial Rate : 103 BPM P-R Int : 130 ms QRS Dur : 092 ms QT Int : 346 ms P-R-T Axes : 070 061 051 degrees QTc Int : 453 ms Sinus tachycardia Otherwise normal ECG When compared with ECG of 22-APR-2019 07:11, No significant change was found Confirmed by Marcell Corcoran ([id number]) on 04/23/2019 10:03:07 AM Referred By: REFERRED SELF Confirmed By:Marcell Corcoran
[2019-04-23] MEDS: HEPARIN SODIUM/DEXTROSE 25,000 UNITS/500 ML BAG IV SCH (17:10)
[2019-04-23] MEDS: ATORVASTATIN 40 MG TAB PO SCH (20:52)
[2019-04-23] MEDS: ACETAMINOPHEN 325 MG TAB PO PRN (20:52)
[2019-04-23] MEDS: TOCOPHERYL, DL-ALPHA 400 UNITS CAP PO SCH (20:53)
[2019-04-23] MEDS: LEVOTHYROXINE SODIUM 75 MCG TABLET PO SCH (20:53)
[2019-04-23] MEDS: TAMOXIFEN CITRATE 10 MG TABLET PO SCH (20:53)
--- NOTE | 2019-04-23 21:59 | Hospitalist Progress Note ---
Date of Service April 23, 2019 Assessment & Plan (1) Multiple pulmonary emboli: Continue heparin drip for now. Patient remains hemodynamically stable. 2D echo complete. Awaiting hematology evaluation ordered today 04/23. will need to know if patient will continue on tamxifen. (2) Pericardial effusion: Await 2D echo (3) History of carcinoma in situ of breast: Follows with Dr. Gooden -consult Tuesday morning Continue tamoxifen (4) Hyperlipidemia: Continue atorvastatin (5) Hypertension: Continue home meds including amlodipine and lisinopril Monitor on telemetry (6) Hypothyroidism: Continue levothyroxine Further management as an outpatient (7) Vitamin D deficiency: Continue outpatient cholecalciferol (8) Chronic reflux esophagitis: Continue home PPI of omeprazole 20 mg p.o. every morning (9) DVT prophylaxis: Patient receiving weight-based heparin protocol for pulmonary emboli Check a bilateral lower extremity Doppler to rule out DVT Ambulate as tolerated/ Subjective Patient reports no new symptoms. Review of Systems Review of Systems: All systems reviewed & are unremarkable except as noted in HPI & below Physical Exam Physical Exam: Constitutional: cooperative; no acute distress Neck: trachea midline, no thyromegaly Respiratory: normal respiratory effort Auscultation: lungs clear to auscultation bilaterally; no crackles, no rales, no rhonchi and no wheezes Cardiovascular: Rate/Rhythm: regular rate, regular rhythm and + tachycardic Heart Sounds: normal S1 and normal S2 Gastrointestinal (Abdomen): Inspection/Auscultation: abdomen normal to inspection Percussion/Palpation: abdomen soft; abdomen nontender, no guarding, abdomen not rigid and no hepatosplenomegaly Skin: no rashes, warm and dry Results & Data Vital Signs (Past 12 Hours) Vital Signs Temp Pulse Pulse Resp BP BP Pulse Ox 04/23/19 20:26 37.7 C H 106 H 20 131/75 93 04/23/19 15:30 37.6 C H 113 H 19 131/71 90 04/23/19 14:20 120 H 04/23/19 11:28 36.3 C L 113 H 18 148/59 H 96 PG Care Time/CCT Total # of Minutes Spent Total Time Spent with Patient: Total time spent is greater than 50% in coordination of care (as documented) at patient's floor/unit and/or counseling patient:
[2019-04-24] MEDS: AMLODIPINE BESYLATE 5 MG TAB PO SCH (08:00)
[2019-04-24] MEDS: CHOLECALCIFEROL 1,000 UNITS TAB PO SCH (08:00)
[2019-04-24] MEDS: ASPIRIN 81 MG ECTAB PO SCH (08:01)
[2019-04-24] MEDS: lisinopriL 20 MG TAB PO SCH (08:01)
[2019-04-24] MEDS: PANTOprazole 40 MG TAB PO SCH (08:01)
[2019-04-24 08:29] LABS: Basophils # (auto) 0.01 K/uL (0-0.2); Basophils % (auto) 0.1 %; Eosinophils # (auto) 0.08 K/uL (0-0.5); Eosinophils % (auto) 0.8 %; Hematocrit (blood only) 31.9 % (37-47); Hemoglobin 10.6 g/dL (12.0-16.0); Immature Granulocytes # (auto) 0.02 K/uL (0.00-0.02); Immature Granulocytes % (auto) 0.2 %; Lymphocytes # (auto) 0.69 K/uL (1.2-3.4); Lymphocytes % (auto) 6.9 %; Mean Corpuscular Hemoglobin 28.3 pg (25-34); Mean Corpuscular Hgb Conc 33.2 g/dL (32-36); Mean Corpuscular Volume 85.3 fL (80-100); Mean Platelet Volume 9.7 fL (7.4-10.4); Neutrophils # (auto) 8.55 K/uL (1.4-6.5); Platelet Count 255 K/uL (130-400); RDW Coefficient of Variation 13.8 % (11.5-14.5); RDW Standard Deviation 43.6 fL (36.4-46.3); Red Blood Count 3.74 M/uL (4.2-5.4); White Blood Count 9.95 K/uL (4.8-10.8)
[2019-04-24 08:54] LABS: Partial Thromboplastin Ratio 2.1
[2019-04-24 09:00] LABS: Partial Thromboplastin Time 56.5 Seconds (21.0-31.0)
[2019-04-24] MEDS ORDERED: RIVAROXABAN 15 MG TAB PO SCH (09:00)
[2019-04-24 09:01] LABS: BUN Creatinine Ratio 14.6 (10-20); Calcium 9.2 mg/dl (8.5-10.1); Creatinine Clr Calc Pharmacy 51.6 ml/min; Est GFR (African American) 75.6; Est GFR (Non-African American) 65.2; Potassium 3.8 mmol/L (3.5-5.1)
--- NOTE | 2019-04-24 10:33 | Consultation Report ---
DATE OF CONSULTATION: 04/24/2019 REASON FOR CONSULTATION: New diagnosed pulmonary emboli, 69-year-old patient with ductal carcinoma in situ. HISTORY OF PRESENT ILLNESS: Jayda Edmonds is a pleasant 69-year-old postmenopausal female currently under my care for DCIS of the right breast. Diagnosis was established November of 2015. She underwent lumpectomy followed by adjuvant radiation therapy and as per current standard of care, tamoxifen prophylaxis. Jayda actually underwent total abdominal hysterectomy on 04/13/2019. Shortly thereafter, had been doing very well until the day prior to admission where she noticed some shortness of breath and right-sided chest pain. She waited as the pain persisted but is her breathing became more difficult, she subsequently presented to the Emergency Room. CTA of the chest revealed bilateral submassive pulmonary emboli with saddle emboli. The patient has no prior history of thrombosis, nor does she have a family history of thrombophilia. Clearly, this event was brought on by surgery and therefore deemed provoked. She is presently on heparin and primary service requesting guidance regarding long-term anticoagulation moving forward. I have recommended she discontinue tamoxifen. PAST MEDICAL HISTORY: Again, significant for coronary artery disease, chronic esophageal reflux disease, hyperlipidemia, hypertension, hypothyroidism, ductal carcinoma in situ, right breast; TMJ. PAST SURGICAL HISTORY: Status post total hysterectomy and bilateral salpingo-oophorectomy on 04/13/2019, lumpectomy x2, colonoscopy and D and C. MEDICATIONS: Prior to admission include amlodipine 5 mg p.o. daily, cholecalciferol 3000 units p.o. daily, lisinopril 20 mg p.o. daily, omeprazole 20 mg p.o. daily, tamoxifen 20 mg p.o. daily, atorvastatin 80 mg p.o. daily, vitamin E 400 international units p.o. daily, levothyroxine 75 mcg p.o. daily, aspirin 81 mg p.o. daily. ALLERGIES: INCLUDE BEE VENOM. SOCIAL HISTORY: The patient is single, lives independently. She does consume occasional beer. Negative for cigarettes. FAMILY HISTORY: Breast cancer involving maternal aunt and her father suffers from hypertension, CVA and ischemic heart disease. Mother suffered from hypertension, CVA and hyperlipidemia. REVIEW OF SYSTEMS: As per HPI, she had complained of subacute onset shortness of breath, dyspnea on exertion and chest pain. She also reports intermittent low-grade fever. She is not anorexic or losing weight. SKIN: No rashes or lesions. No history of dermatoses. HEENT: Negative for headaches, lightheadedness or dizziness. No visual or hearing deficits. No sinus symptoms, sore throat or dysphagia. LYMPH: No history of lymphoproliferative disease. CARDIAC: Positive history of coronary artery disease. She denies any current angina or palpitations. PULMONARY: Positive for shortness of breath or dyspnea prior to admission. No cough or hemoptysis reported. GASTROINTESTINAL: Negative for abdominal pain, nausea, vomiting, diarrhea or constipation, hematochezia or melena stools. GENITOURINARY: No hematuria, dysuria or urinary incontinence. PSYCHIATRIC: Negative for anxiety, depression or psychoses. ENDOCRINE: Negative for diabetes mellitus. Positive for hypothyroidism. MUSCULOSKELETAL: No arthralgias or myalgias. No focal muscle weakness. NEUROLOGIC: Negative for seizure, stroke, or migraine headache. HEMATOLOGIC: Negative for anemia, thrombophilia or bleeding diathesis by history. PHYSICAL EXAMINATION: GENERAL: Very pleasant, well-nourished 69-year-old female patient in no acute distress. VITAL SIGNS: Temperature 37.2, pulse 91, respiratory rate 20, blood pressure 114/68. SKIN: Warm, dry, noncyanotic without petechia, rash or ecchymosis. HEENT: Head is atraumatic, normocephalic. Eyes: PERRLA, EOMI. Sclerae nonicteric. Nares are patent without rhinorrhea or discharge. Throat is clear. Tongue midline. Mucous membranes are moist. NECK: Supple without JVD or thyromegaly. LYMPHATICS: No cervical or supraclavicular palpable nodes. HEART: Regular rate and rhythm. No clicks, rubs, murmurs or gallops. LUNGS: Clear to auscultation bilaterally. ABDOMEN: Soft, nontender, nondistended, without palpable hepatosplenomegaly. EXTREMITIES: No calf tenderness or swelling. No clubbing, cyanosis or edema. NEUROLOGICAL: She is awake, alert and oriented x3. Cranial nerves II-XII are intact. No gross motor or sensory deficits are noted. LABORATORY DATA: These are from April 23, WBC count 13,390; hemoglobin 11.1, platelet count 250,000. PTT 50.3 seconds, currently on heparin. RADIOGRAPHIC DATA: Venous Doppler studies are negative for DVTs bilaterally. CTA of the chest reveals right greater than left pulmonary emboli with associated mild right heart strain. IMPRESSION: 1. Bilateral pulmonary emboli. 2. Small pericardial effusion. 3. Ductal carcinoma in situ (right breast). 4. Hyperlipidemia. 5. Hypertension. 6. Hypothyroidism. PLAN: It was my pleasure to visit with Jayda at bedside this morning. Seems to be doing quite well, was admitted to [facility] couple of days ago with subacute onset shortness of breath and chest pain. CTA of the chest confirmed bilateral pulmonary emboli. The patient has no prior history of thrombosis nor family history of thrombophilia. Do not feel testing is necessary in this setting as I believe her thrombotic event was provoked by preceding surgery. However, she is presently on tamoxifen which carries a small risk of thrombosis and therefore will recommend discontinuance and perhaps place her on an aromatase inhibitor in its place. In regard to anticoagulation moving forward, standard of care is 3-6 months. I will most likely reimage Jayda before deciding if she can safely go off of anticoagulation. One could argue because of the extensiveness to consider prolonged anticoagulation, which I may consider. As for anticoagulation, will proceed with Xarelto 15 mg p.o. b.i.d. for the next 21 days, then convert to 20 mg p.o. daily thereafter. Jayda has outpatient followup with me towards the end of the month, which I have asked her to keep. We will engage in discussion regarding possible incorporation of aromatase inhibitors and further discuss duration of anticoagulation. I have nothing further to add. Agree with current management as is. Thank you very much for allowing me to participate in her care. MARVA
[2019-05-15] MEDS ORDERED: RIVAROXABAN 20 MG TAB PO SCH (15:30)
== END 2019-04-24 14:05 | disposition home or self-care (01) | DRG 176 ==
LOC: ED 11:39 → 2N 15:22 → SUATTDRO 15:22 → 2N 16:09

== ENCOUNTER 2019-05-07 13:37 | Inpatient (IN) ==
[2019-05-07 15:09] LABS: BUN Creatinine Ratio 20.2 (10-20); Calcium 9.4 mg/dl (8.5-10.1); Creatinine Clr Calc Pharmacy 43.8 ml/min; Est GFR (African American) 61.3; Est GFR (Non-African American) 52.9; Potassium 3.9 mmol/L (3.5-5.1)
[2019-05-07] MEDS ORDERED: OPTIRAY 320 125ml IV PRN (16:20)
--- NOTE | 2019-05-07 16:47 | CT Scan Report ---
CT angio chest PE protocol CT DOSE: 475.92 mGycm HISTORY: Dyspnea persistent SOb/fever, eval for PEs/infarct/pna TECHNIQUE: Multiaxial CT images of the chest were performed following the intravenous administration of contrast to evaluate the pulmonary arteries. Maximal intensity projection images were also obtaine d. A dose lowering technique was utilized adhering to the principles of ALARA. COMPARISON STUDY: 04/21/2019 FINDINGS: The thoracic aorta is normal in course and caliber. All pulmonary emboli on the prior study are considerably improved in overall appearance. Volume of em boli has diminished by approximately 90%. Patient has developed and significant right-sided pleural effusion. There are findings of mild right basilar atelectatic change. There are several small hypodensities involving the liver which are unchanged from the prior exam. Th rui are nonspecific. IMPRESSION: 1. Several very small residual pulmonary emboli with the study in general markedly improved in terms of embolic load compared to the prior study. 2. Interval development of right pleural effusion. 3. Right and to a lesser extent left basilar atelectatic change. ACT 112: Negative or not required by law. The above report was generated using voice recognition software. It may contain grammatical, syntax or spelling errors. Electronically signed by: Asher Kamara M.D. 05/07/2019 4:46 PM
[2019-05-07 18:42] LABS: Alanine Aminotransferase 291 U/L (12-78); Albumin Level 2.5 gm/dl (3.4-5.0); Alkaline Phosphatase 62 U/L (45-117); Aspartate Aminotransferase 299 U/L (15-37); Bilirubin Direct < 0.1 mg/dl (0-0.2); Bilirubin,Total 0.3 mg/dl (0.2-1)
--- NOTE | 2019-05-07 20:11 | Electrocardiogram Report ---
Test Reason : Blood Pressure : / mmHG Vent. Rate : 112 BPM Atrial Rate : 112 BPM P-R Int : 122 ms QRS Dur : 094 ms QT Int : 324 ms P-R-T Axes : 056 023 023 degrees QTc Int : 442 ms Sinus tachycardia Otherwise normal ECG When compared with ECG of 01-MAY-2019 11:53, No significant change was found Confirmed by Helio Jacome ([id number]) on 05/07/2019 8:11:05 PM Referred By: REFERRED SELF Confirmed By:Jesus Jacome
--- NOTE | 2019-05-07 20:12 | Electrocardiogram Report ---
Test Reason : Blood Pressure : / mmHG Vent. Rate : 111 BPM Atrial Rate : 111 BPM P-R Int : 124 ms QRS Dur : 088 ms QT Int : 320 ms P-R-T Axes : 051 010 021 degrees QTc Int : 435 ms Sinus tachycardia Otherwise normal ECG When compared with ECG of 07-MAY-2019 13:46, (unconfirmed) No significant change was found Confirmed by Helio Jacome ([id number]) on 05/07/2019 8:12:43 PM Referred By: REFERRED SELF Confirmed By:Jesus Jacome
[2019-05-07 20:13] LABS: Magnesium 2.4 mg/dl (1.8-2.4); Phosphorus 3.1 mg/dl (2.5-4.9)
[2019-05-07 20:42] LABS: Hepatitis B Surface Antigen Neg (Neg)
[2019-05-07] MEDS: LEVOTHYROXINE SODIUM 75 MCG TABLET PO SCH (20:54)
[2019-05-07 21:11] LABS: Hepatitis C IgG 13Yrs+Old_Rflx Neg (Neg)
--- NOTE | 2019-05-07 22:13 | History & Physical Report ---
Date of Service May 07, 2019 Assessment & Plan (1) Pleural effusion, right: 69yo C female with history of breast CA, recent SALEEM-BSO performed for suspicious uterine lesion, recent submassive PE on anticoagulation with Xarelto, recent PNA s/p treatment with Levaquin. Patient returns today with worsening APONTE and dry cough, decreased activity tolerance. Found with increase in right sided pleural effusion. Decreased clot burden noted on repeat CTA. No evidence of infiltrate or infectious process. ?Hemothorax, recent anticoagulation, ?inflammatory in setting of recent PE, suspected infarct, ?parapneumonic in setting of recent PNA. Dr. Vyas contacted by ER attending, plan to drain effusion tomorrow -Admit to medical floor -Hold anticoagulation, Xarelto and ASA -Appreciate assistance of Dr. Vyas -Supplemental O2 as needed. Present on Admission?: Yes (2) Abnormal LFTs: Patient with elevated LFTs, coagulopathy. Etiology uncertain at this time. -Check Acetaminophen level, acute hepatitis panel -Check liver US -Repeat LFTs in AM -Will hold statin for now Present on Admission?: Yes (3) Pulmonary emboli: Improved as noted on repeat imaging. -Holding Xarelto as above -Resume pending pleural fluid analysis Present on Admission?: Yes (4) History of total hysterectomy with bilateral salpingo-oophorectomy (BSO): Patient doing well post-operatively. Wounds well healed, no evidence of infection -Continue to montior Present on Admission?: Yes (5) Chronic reflux esophagitis: Chronic. Stable -Continue Omeprazole Present on Admission?: Yes (6) Hyperlipidemia: Chronic -Holding Atorvastatin for now in setting of elevated LFTs -Repeat LFTs in AM Present on Admission?: Yes (7) Hypertension: Blood pressure mildly elevated -Continue Amlodipine -Continue Lisinopril -Continue to monitor Present on Admission?: Yes (8) Hypothyroidism: Chronic -Continue Synthroid Present on Admission?: Yes (9) Intraductal carcinoma of right breast: Patient recently taken off Tamoxifen due to submassive PE. She was switched to Anastrozole by Dr. Gooden. Has not yet started this medication -Resume Anastrozole on discharge Present on Admission?: Yes History of Present Illness Chief Complaint: SOB Primary Care Provider: Robbi Wise MD Jayda Edmonds is a 69yo C female with history of bilateral breast CA s/p lumpectomy, recent laparoscopic SALEEM-BSO performed on 04/13/19 for suspicious mass discovered in uterus. Patient's surgery was well tolerated and she was discharged home in stable condition on 04/14/19. She returned to the hospital on 04/21/19 with SOB and right sided chest pain. She was found to have bilateral submassive PE associated with right heart strain, suspected pulmonary infarct. She was managed with a heparin gtt and transitioned to Xarelto on discharge. Her Tamoxifen was discontinued under direction of Heme/Onc. She was discharged home in stable condition on 04/24/19. She was seen in followup by her PCP on 05/01/19 with complaint of fever. CXR at that time with increase in pleural effusion and possible early PNA. She was sent to the ER for further workup. She was subsequently sent home from the ER with Levaqwally and Osvaldoon. She reports improvement in her symptoms with those medications. She was seen by her PCP this morning for followup with complaint of APONTE and dry cough. CXR with slight progression of right pleural effusion. CTA was ordered outpatient, unable to be completed therefore the patient was sent to the ER. Upon arrival she was found to be afebrile, tachycardic at 105bpm, bp stable, RR of 22 and saturating 92% on room air. CT of the chest with increase in pleural effusion and some atelectasis. Decrease in clot burden. ER Course: No medications given Allergies Allergy/AdvReac Type Severity Reaction Status Date / Time bee venom protein (honey bee) Allergy Mild Hives Verified 05/07/19 16:12 No Known Drug Allergies Allergy Unknown . Verified 05/07/19 16:12 Home Medications Home Medications Medication Instructions Recorded Confirmed Type amlodipine 5 mg tablet 5 mg PO QAM 01/02/19 05/07/19 History cholecalciferol (vitamin D3) 3,000 3,000 units PO QAM 01/02/19 05/07/19 History unit tablet lisinopril 20 mg tablet 20 mg PO QAM 01/02/19 05/07/19 History omeprazole 20 mg capsule,delayed 20 mg PO QAM 01/02/19 05/07/19 History release epinephrine 0.3 mg/0.3 mL 0.3 mg IM UD PRN ea 01/08/19 05/07/19 History injection, auto-injector atorvastatin [Lipitor] 80 mg PO HS 02/06/19 05/07/19 History vitamin E 400 unit PO HS 02/06/19 05/07/19 History levothyroxine 75 mcg tablet 75 mcg PO HS 02/08/19 05/07/19 History aspirin 81 mg PO QAM 04/02/19 05/07/19 History acetaminophen [Tylenol Extra 500 mg PO Q6H PRN 05/01/19 05/07/19 History Strength] benzonatate [Tessalon Perles] 100 mg PO UD PRN 05/07/19 05/07/19 History rivaroxaban [Xarelto] 1 ea PO DAILY 05/07/19 05/07/19 History Past Med/Surg History Social History Preferred Language: Latvian Communication Ability: Effective Visual Impairment: No Limitations Hearing Ability: Normal Felt Carbonizer Required: No Beliefs That Will Affect Care: None marital status: Single Current Living Situation: Alone Other Information That Helps Us Care for You: No Feels Safe at Home: Yes Safety Concerns: Feels Safe At This Time Smoking Status: Never smoker Second Hand Exposure: Yes (yrs ago) ; Hx Alcohol Use: Yes Alcohol type: beer Hx Substance Use: No Seatbelt Use: always Review of Systems Review of Systems: All systems reviewed & are unremarkable except as noted in HPI & below +Dry cough in AM +APONTE/SOB today +Back pain +occasional chest tightness Physical Exam Physical Exam: General: patient resting comfortably, NAD, non-toxic in appearance, AA&O x 4 Skin: warm, dry, surgical sites on abdomen well approximated, small smount of bleeding noted on under garments, no dehiscence HEENT: NC/AT, PERRL, EOMI, anicteric sclera, conjunctiva without injection, external ear normal to inspection and nontender, nares patent, moist mucus membranes, dentition intact, no oropharyngeal lesions, neck supple, trachea midline, no LAD, no thyromegaly, no JVD Heart: +S1/S2, regular, no m/r/g Lungs: equal air entry bilaterally, no rales/rhonchi/wheezes, diminished breath sounds in right base, dullness to percussion right base Abd: +BS, soft, NT/ND, no masses/organomegaly/ascites Ext: warm, 2+ pulses in UE/LE bilaterally, no clubbing/cyanosis or edema Neuro: nonfocal, patient AA&O x 4, speech intact, no facial droop, moving all extremities on command with equal strength 5/5 Results & Data Vital Signs (Past 12 Hours) Vital Signs Temp Pulse Pulse Resp BP BP Pulse Ox 05/07/19 20:45 36.7 C 105 H 20 143/61 H 05/07/19 19:11 105 H 20 130/66 92 05/07/19 17:31 105 H 22 150/70 H 92 05/07/19 15:39 105 H 20 161/70 H 94 05/07/19 13:38 36.4 C L 123 H 20 144/65 H 96 Laboratory Results Lab Results 05/07/19 05/07/19 05/07/19 Range/Units 14:16 14:16 14:16 Sodium 136 (136-145) mmol/L Potassium 3.9 (3.5-5.1) mmol/L Chloride 103 (98-107) mmol/L Carbon Dioxide 25 (21-32) mmol/L Anion Gap 8.0 (3-11) BUN 22 H (7-18) mg/dl Creatinine 1.07 (0.6-1.2) mg/dl Est Cr Clr Drug Dosing 43.8 ml/min Est GFR ( Amer) 61.3 Est GFR (Non-Af Amer) 52.9 BUN/Creatinine Ratio 20.2 H (10-20) Glucose 109 H (70-99) mg/dl Calcium 9.4 (8.5-10.1) mg/dl Phosphorus (2.5-4.9) mg/dl Magnesium (1.8-2.4) mg/dl Total Bilirubin 0.3 (0.2-1) mg/dl Direct Bilirubin < 0.1 (0-0.2) mg/dl AST 299 H (15-37) U/L ALT 291 H (12-78) U/L Alkaline Phosphatase 62 (45-117) U/L Troponin I < 0.015 (0-0.045) ng/ml Total Protein 7.0 (6.4-8.2) gm/dl Albumin 2.5 L (3.4-5.0) gm/dl Acetaminophen (10-30) ug/ml Hep Bs Antigen (Neg) Hepatitis C Antibody (Neg) 05/07/19 05/07/19 05/07/19 Range/Units 19:38 19:38 19:38 Sodium (136-145) mmol/L Potassium (3.5-5.1) mmol/L Chloride (98-107) mmol/L Carbon Dioxide (21-32) mmol/L Anion Gap (3-11) BUN (7-18) mg/dl Creatinine (0.6-1.2) mg/dl Est Cr Clr Drug Dosing ml/min Est GFR ( Amer) Est GFR (Non-Af Amer) BUN/Creatinine Ratio (10-20) Glucose (70-99) mg/dl Calcium (8.5-10.1) mg/dl Phosphorus 3.1 (2.5-4.9) mg/dl Magnesium 2.4 (1.8-2.4) mg/dl Total Bilirubin (0.2-1) mg/dl Direct Bilirubin (0-0.2) mg/dl AST (15-37) U/L ALT (12-78) U/L Alkaline Phosphatase (45-117) U/L Troponin I (0-0.045) ng/ml Total Protein (6.4-8.2) gm/dl Albumin (3.4-5.0) gm/dl Acetaminophen < 2 L (10-30) ug/ml Hep Bs Antigen Neg (Neg) Hepatitis C Antibody Neg (Neg) Diagnostic Findings CT angio chest PE protocol CT DOSE: 475.92 mGycm HISTORY: Dyspnea persistent SOb/fever, eval for PEs/infarct/pna TECHNIQUE: Multiaxial CT images of the chest were performed following the intravenous administration of contrast to evaluate the pulmonary arteries. Maximal intensity projection images were also obtained. A dose lowering technique was utilized adhering to the principles of ALARA. COMPARISON STUDY: 04/21/2019 FINDINGS: The thoracic aorta is normal in course and caliber. All pulmonary emboli on the prior study are considerably improved in overall appearance. Volume of emboli has diminished by approximately 90%. Patient has developed and significant right-sided pleural effusion. There are findings of mild right basilar atelectatic change. There are several small hypodensities involving the liver which are unchanged from the prior exam. These are nonspecific. IMPRESSION: 1. Several very small residual pulmonary emboli with the study in general markedly improved in terms of embolic load compared to the prior study. 2. Interval development of right pleural effusion. 3. Right and to a lesser extent left basilar atelectatic change. ACT 112: Negative or not required by law. The above report was generated using voice recognition software. It may contain grammatical, syntax or spelling errors. Electronically signed by: Asher Kamara M.D. 05/07/2019 4:46 PM Dictated: 05/07/19 164 Transcribed: 05/07/19 164 ECG Additional Comments: ST at 112, normal axis and intervals, no acute ischemic changes appreciated Code Status & VTE Plan Code Status FULL VTE Prophylaxis Plan VTE Prophylaxis will be ordered: Yes PG Care Time/CCT Total # of Minutes Spent Total Time Spent with Patient: Total time spent is greater than 50% in coordinat ion of care (as documented) at patient's floor/unit and/or counseling patient: Coding Level of Care Code 91860 Initial Inpt Care Lvl 3 Diagnoses Pleural effusion, right J90 Abnormal LFTs R94.5 Pulmonary emboli I27.82 Acute cor pulmonale presence: unspecified Chronicity: chronic Pulmonary embolism type: unspecified History of total hysterectomy with bilateral salpingo-oophorectomy (BSO) Z90.710; Z90.722; Z90.79 Chronic reflux esophagitis K21.0 Hyperlipidemia E78.5 Hyperlipidemia type: unspecified Hypertension I10 Hypertension type: essential hypertension Hypothyroidism E03.9 Hypothyroidism type: unspecified Intraductal carcinoma of right breast D05.11 (1) Pulmonary emboli Acute cor pulmonale presence: unspecified Chronicity: chronic Pulmonary embolism type: unspecified Qualified Code(s): I27.82 - Chronic pulmonary embolism (2) Hyperlipidemia Hyperlipidemia type: unspecified Qualified Code(s): E78.5 - Hyperlipidemia, unspecified (3) Hypertension Hypertension type: essential hypertension Qualified Code(s): I10 - Essential (primary) hypertension (4) Hypothyroidism Hypothyroidism type: unspecified Qualified Code(s): E03.9 - Hypothyroidism, unspecified
--- NOTE | 2019-05-07 22:56 | Emergency Department Note ---
Entered by Anyi Davila acting as a scribe for Javad Edwards MD History of Present Illness General Chief complaint: Abnormal Labs/Diagnostic Testing Stated complaint: ABNORMAL LABS Time Seen by Provider: 05/07/19 14:17 Source: patient History of Present Illness Onset (ago): week(s) 1 Location: mouth (shortness of breath) Pain Consistency: + other (worsening) Maximum Pain Intensity: 2 Exacerbated By: + other (in the morning) Associated symptoms: + cough, + fever/chills (fever of 102), + shortness of breath and + other (tachycardia) The patient is a 69 year old F who presents to the Emergency Room with complaints of worsening shortness of breath that started 1 week ago. The patient notes that she was in the ED, in the past, for clots in her lungs. She states that she was started on Xarelto. She notes that she was in the ED again, last week, after experiencing shortness of breath and fevers. She states she was diagnosed with pneumonia. She adds that was started on Levaquin, which she notes that she now finished. She states that she is still experiencing shortness of b reath, and coughing. She notes that she is now also experiencing tachycardia. She adds that her fevers have gotten as high as 102, although currently her fevers have gone away. She notes that her shortness of breath worsens in the mornings. She states that she saw her PCP earlier today who was planning on scheduling her for an outpatient CT and blood work. She adds that her PCP performed blood work before her CT. She states that her PCP told her that her bleeding times was abnormal. She notes that her PCP was concerned with her blood work results and referred her to the ED. She states that she had a hysterectomy performed on April 13. She adds that she is still experiencing vaginal discharge. She notes that she contacted Dr. Archibald OBGYAlva, about her vaginal discharge. She adds that Dr. Archibald told her that it was not concerning. She states that she has a history of breast cancer. Home Medications Home Medications Medication Instructions Recorded Confirmed Type amlodipine 5 mg tablet 5 mg PO QAM 01/02/19 05/07/19 History cholecalciferol (vitamin D3) 3,000 3,000 units PO QAM 01/02/19 05/07/19 History unit tablet lisinopril 20 mg tablet 20 mg PO QAM 01/02/19 05/07/19 History omeprazole 20 mg capsule,delayed 20 mg PO QAM 01/02/19 05/07/19 History release epinephrine 0.3 mg/0.3 mL 0.3 mg IM UD PRN ea 01/08/19 05/07/19 History injection, auto-injector atorvastatin [Lipitor] 80 mg PO HS 02/06/19 05/07/19 History vitamin E 400 unit PO HS 02/06/19 05/07/19 History levothyroxine 75 mcg tablet 75 mcg PO HS 02/08/19 05/07/19 History aspirin 81 mg PO QAM 04/02/19 05/07/19 History acetaminophen [Tylenol Extra 500 mg PO Q6H PRN 05/01/19 05/07/19 History Strength] benzonatate [Tessalon Perles] 100 mg PO UD PRN 05/07/19 05/07/19 History rivaroxaban [Xarelto] 1 ea PO DAILY 05/07/19 05/07/19 History Allergies Allergy/AdvReac Type Severity Reaction Status Date / Time bee venom protein (honey bee) Allergy Mild Hives Verified 05/07/19 16:12 No Known Drug Allergies Allergy Unknown . Verified 05/07/19 16:12 Past Med/Surg History Medical History Carotid artery stenosis (Acute) Chronic reflux esophagitis (Acute) H/O malignant neoplasm of breast LT- Had radiation History of carcinoma in situ of breast Hyperlipidemia (Acute) Hypertension (Acute) Hypothyroidism (Acute) Intraductal carcinoma of right breast (Resolved 11/03/15) "History of prior left breast DCIS in 2003 Status post lumpectomy followed by radiation therapy. Radiation completed 01/08/2004 received 6120 cGy Abnormal right breast mammogram 10/22/2015 Status post ultrasound-guided biopsy 11/03/2015 revealing atypical papillary proliferation with atypia and at least ADH. Review of slides at [facility] [facility] showed ductal carcinoma in situ Status post mammotome biopsies of the right breast 12/29/2015 revealing benign tissue Stage pTis NXMX Estrogen receptor positive BRCA1 and BRCA2 testing negative Status post completion of radiation therapy 04/02/2016. Received 5130 cGy utilizing hypo-fractionation. Tamoxifen therapy" On 04/13/16 14:49 Alyx Hooks wrote "History of prior left breast DCIS in 2003 Status post lumpectomy followed by radiation therapy. Radiation completed 01/08/2004 received 6120 cGy Abnormal right breast mammogram 10/22/2015 Status post ultrasound-guided biopsy 11/03/2015 revealing atypical papillary proliferation with atypia and at least ADH. Review of slides at [facility] showed ductal carcinoma in situ Status post mammotome biopsies of the right breast 12/29/2015 revealing benign tissue Stage pTis NXMX Estrogen receptor positive Status post completion of radiation therapy 04/02/2016. Received 5130 cGy utilizing hypo-fractionation." On 02/19/16 10:32 Alyx Boris Jessee wrote "History of prior left breast DCIS in 2003 Status post lumpectomy followed by radiation therapy. Radiation completed 01/08/2004 received 6120 cGy Abnormal right breast mammogram 10/22/2015 Status post ultrasound-guided biopsy 11/03/2015 revealing atypical papillary proliferation with atypia and at least ADH. Review of slides at [facility] showed ductal carcinoma in situ Status post mammotome biopsies of the right breast 12/29/2015 revealing benign tissue Stage pTis NXMX Estrogen receptor positive" Postmenopausal bleeding Temporomandibular joint disorder hx Tendonitis Vitamin D deficiency (Acute) Surgical History H/O dilation and curettage History of colonoscopy History of total hysterectomy with bilateral salpingo-oophorectomy (BSO) Robotic surgery 04/13/2019 S/P breast lumpectomy x2 Family History Aunt Breast cancer maternal aunt Father Hypertension Stroke Ischemic heart disease Mother Hypertension Stroke Hyperlipidemia Social History Preferred Language: Vietnamese Communication Ability: Effective Visual Impairment: No Limitations Hearing Ability: Normal Pulmonary Physical Therapist Required: No Beliefs That Will Affect Care: None marital status: Single Current Living Situation: Alone Other Information That Helps Us Care for You: No Feels Safe at Home: Yes Safety Concerns: Feels Safe At This Time Smoking Status: Never smoker Second Hand Exposure: Yes (yrs ago) ; Hx Alcohol Use: Yes Alcohol type: beer Hx Substance Use: No Seatbelt Use: always Review of Systems See HPI for pertinent positives & negatives. and A total of 10 systems reviewed and were otherwise negative Physical Exam Vital Signs Vital Signs - 24 hr 05/07/19 13:38 05/07/19 15:39 05/07/19 17:31 Temperature 36.4 C L Temperature Source Oral Pulse Rate 123 H Pulse Rate [Apical] 105 H 105 H Pulse Rhythm [Apical] Regular Regular Pulse Strength [Apical] Normal Normal Respiratory Rate 20 20 22 Respiratory Effort / Characteristics Non-Labored Spontaneous Non-Labored Spontaneous Respiratory Depth Normal Normal Respiratory Pattern Regular Regular Blood Pressure 144/65 H Blood Pressure [Right Arm] 161/70 H 150/70 H Blood Pressure Mean 91 Blood Pressure Mean [Right Arm] 100 96 Blood Pressure Position [Right Arm] Sitting Sitting Pulse Oximetry 96 94 92 Oxygen Delivery Method Room Air Room Air Room Air Sepsis Recent Fever Within 48 Hours No Sepsis New/Unexplained Change in Mental Status No Sepsis Action Taken by Nursing No Action Required Constitutional: Vital signs reviewed. Eyes: Pupils are equal round reactive to light. Conjunctiva are noninjected. ENT: Pharynx is clear without erythema or exudate. Mucous membranes are moist. Neck supple without meningeal signs. Respiratory: Crackles right base. Breath sounds are equal bilaterally. Cardiovascular: Tachycardic rate and rhythm. Heart rate of 110. No rubs or gallops. GI: Soft, nondistended and nontender. Bowel sounds are present. Musculoskeletal: No peripheral edema. No lower extremity tenderness. Integumentary: No cyanosis. Neurological: The patient is awake and alert. No focal deficits. Psychiatric: Normal affect. Course Course 1424: The patient was evaluated in room A12B. A complete history and physical exam was performed. 1440: I tried to contact Torrie Velazquez PA-C, to discuss the patient's case. Torrie Velazquez is not available. I asked to have Dr. Wise call back. 1453: Susan, nurse reception centre manager, spoke with Torrie Velazquez who states that she wanted the CT after abnormal coags but could not preauthorization from the insurance company. 1513: I talked with the patient. The patient's heart rate is down to 99. I discussed my discussion with the nurse reception centre manager. The patient is agreeable for a CT of her chest. 1714: I reviewed the patient's case with Dr. Fabrice Vyas, Thoracic Surgeon [place], [place] He states to stop all anti-coagulation medications. He told me to admit the patient to medicine. He states that he will drain the patient in the morning. 1723: I reviewed the patient's case with Dr. Linda Mart, [facility] Hospitalist. She will evaluate the patient for further management. 1728: The patient's blood pressure is now 183/97. The patient currently has no complaints. The patient is currently being evaluated by the [facility] Medicine team. Administered Medications Ioversol (Optiray 320 125ml) 118 ml IV ONCE PRN PRN Reason: Interaction Checking Stop: 05/11/19 16:19 Last Admin: 05/07/19 16:21 Dose: 1 ml Documented by: [id number] Levothyroxine Sodium (Synthroid) 75 mcg PO DAILYBB RADHA Stop: 06/06/19 19:59 Last Admin: 05/07/19 20:54 Dose: 75 mcg Documented by: [id number] Medical Decision Making Differential Diagnosis Differential diagnosis includes: PNA, PE, pulmonary infarct, metabolic derangement, , pleural effusion Medical Records Attestation: I reviewed the patient's medical records. I did perform a limited focused review of portions of the patient's old chart on the electronic medical record. The patient was seen at PCP today. The patient had a stable CBC and an INR of 1.8. The patient was scheduled an outpatient CT. Home Medications Current Medication List: was personally reviewed by me Laboratory Data Attestation: I reviewed the patient's lab results. Result diagrams: 05/07/19 14:16 Lab Results 05/07/19 05/07/19 05/07/19 Range/Units 14:16 14:16 14:16 Sodium 136 (136-145) mmol/L Potassium 3.9 (3.5-5.1) mmol/L Chloride 103 (98-107) mmol/L Carbon Dioxide 25 (21-32) mmol/L Anion Gap 8.0 (3-11) BUN 22 H (7-18) mg/dl Creatinine 1.07 (0.6-1.2) mg/dl Est Cr Clr Drug Dosing 43.8 ml/min Est GFR ( Amer) 61.3 Est GFR (Non-Af Amer) 52.9 BUN/Creatinine Ratio 20.2 H (10-20) Glucose 109 H (70-99) mg/dl Calcium 9.4 (8.5-10.1) mg/dl Total Bilirubin 0.3 (0.2-1) mg/dl Direct Bilirubin < 0.1 (0-0.2) mg/dl AST 299 H (15-37) U/L ALT 291 H (12-78) U/L Alkaline Phosphatase 62 (45-117) U/L Troponin I < 0.015 (0-0.045) ng/ml Total Protein 7.0 (6.4-8.2) gm/dl Albumin 2.5 L (3.4-5.0) gm/dl Imaging Data Radiologist's Impression: Radiology results as stated below per my review and the radiologist's interpretation: CT angio chest PE protocol CT DOSE: 475.92 mGycm HISTORY: Dyspnea persistent SOb/fever, eval for PEs/infarct/pna TECHNIQUE: Multiaxial CT images of the chest were performed following the intravenous administration of contrast to evaluate the pulmonary arteries. Maximal intensity projection images were also obtained. A dose lowering technique was utilized adhering to the principles of ALARA. COMPARISON STUDY: 04/21/2019 FINDINGS: The thoracic aorta is normal in course and caliber. All pulmonary emboli on the prior study are considerably improved in overall appearance. Volume of emboli has diminished by approximately 90%. Patient has developed and significant right-sided pleural effusion. There are findings of mild right basilar atelectatic change. There are several small hypodensities involving the liver which are unchanged from the prior exam. These are nonspecific. IMPRESSION: 1. Several very small residual pulmonary emboli with the study in general markedly improved in terms of embolic load compared to the prior study. 2. Interval development of right pleural effusion. 3. Right and to a lesser extent left basilar atelectatic change. ACT 112: Negative or not required by law. The above report was generated using voice recognition software. It may contain grammatical, syntax or spelling errors. Electronically signed by: Asher Kamara M.D. 05/07/2019 4:46 PM ECG Data Attestation: I personally reviewed and interpreted this ECG as follows: Indication: + SOB/dyspnea Rate (beats per minute): 111 Rhythm: + sinus tachycardia ECG Intervals/blocks: + Normal QRS ECG ST segments: no ST elevation ECG Findings: no PVCs Blood Pressure Blood Pressure Findings: Elevated blood pressure Blood Pressure Disposition: further management by hospitalist BETTY Ghosh I did evaluate the patient as noted above. The patient is presenting with persistent shortness of breath since being diagnosed with multiple pulmonary emboli. She is on anticoagulation with Xarelto. She saw her PCP today and had abnormal coagulation studies and was sent here for further evaluation and CT of the chest. The patient is persistently tachycardic here. She states she has been tachycardic. Given her persistent tachycardia and dyspnea despite being treated for pneumonia as well as her PEs I did feel CT angiogram of the chest was indicated. The patient was in agreement. IV access was established. The patient was placed on a continuous manager monitoring. I did order and personally review the patient's 12-lead EKG as described above. Twelve-lead EKG shows sinus tachycardia without acute ischemia. I did order and review the patient's blood work as noted in the electronic medical record. Chemistries are unremarkable. LFTs are concerning for elevation of her transaminases to almost 300. I did order a CT angiogram of the chest. I did review the images myself as well as the radiology report as described above. She does have residual pulmonary emboli but she also has a very large right pleural effusion. I did discuss the test results with the patient. I did recommend hospitalization. I did discuss case with the thoracic surgeon on-call who advised holding all anticoagulation and he will perform thoracentesis in the morning. I did discuss the case with the hospitalist and dependency case manager. Impression & Plan Pleural effusion, right, Tachycardia, Anticoagulated, Pulmonary emboli, Abnormal LFTs Discharge Plan Visit Data *Final* Discharge Date/Time: 05/07/19 19:11 Chief Complaint: Abnormal Labs/Diagnostic Testing Stated Complaint: ABNORMAL LABS ED Provider: Javad Edwards Discharge Problem: Pleural effusion, right, Tachycardia, Anticoagulated, Pulmonary emboli, Abnormal LFTs Patient Disposition: Admitted As Inpatient Discharge Instructions Interventions: ED Discharge Assessment Last Done: 05/07/19 19:11 Discharge Problem: Pulmonary emboli Qualifiers: Pulmonary embolism type: unspecified Chronicity: chronic Acute cor pulmonale p resence: unspecified Qualified Code(s): I27.82 - Chronic pulmonary embolism The scribe's documentation has been prepared under my direction and personally reviewed by me in its entirety. I confirm that the note above accurately reflects all work, treatment, procedures, and medical decision making performed by me.
[2019-05-08 06:00] LABS: Basophils # (auto) 0.02 K/uL (0-0.2); Basophils % (auto) 0.3 %; Eosinophils # (auto) 0.09 K/uL (0-0.5); Eosinophils % (auto) 1.2 %; Hematocrit (blood only) 28.9 % (37-47); Hemoglobin 9.4 g/dL (12.0-16.0); Lymphocytes # (auto) 0.85 K/uL (1.2-3.4); Lymphocytes % (auto) 11.3 %; Mean Corpuscular Hemoglobin 27.7 pg (25-34); Mean Corpuscular Hgb Conc 32.5 g/dL (32-36); Mean Corpuscular Volume 85.3 fL (80-100); Mean Platelet Volume 8.9 fL (7.4-10.4); Monocytes # (auto) 0.36 K/uL (0.11-0.59); Monocytes % (auto) 4.8 %; Neutrophils # (auto) 6.18 K/uL (1.4-6.5); Neutrophils % (auto) 82.4 %; Platelet Count 315 K/uL (130-400); RDW Coefficient of Variation 14.4 % (11.5-14.5); RDW Standard Deviation 44.9 fL (36.4-46.3); Red Blood Count 3.39 M/uL (4.2-5.4)
[2019-05-08] MEDS: LEVOTHYROXINE SODIUM 75 MCG TABLET PO SCH (06:12)
[2019-05-08 06:18] LABS: INR 1.2 (0.9-1.1); Prothrombin Time 12.3 Seconds (9.0-12.0)
[2019-05-08 06:47] LABS: Alanine Aminotransferase 232 U/L (12-78); Albumin Level 2.1 gm/dl (3.4-5.0); Alkaline Phosphatase 56 U/L (45-117); Aspartate Aminotransferase 213 U/L (15-37); BUN Creatinine Ratio 22.5 (10-20); Bilirubin Direct < 0.1 mg/dl (0-0.2); Bilirubin,Total 0.3 mg/dl (0.2-1); Blood Urea Nitrogen 19 mg/dl (7-18); Calcium 8.9 mg/dl (8.5-10.1); Carbon Dioxide 26 mmol/L (21-32); Chloride 109 mmol/L (98-107); Creatinine Clr Calc Pharmacy 56.5 ml/min; Est GFR (African American) 83.4; Est GFR (Non-African American) 71.9; Glucose 89 mg/dl (70-99); Potassium 4.5 mmol/L (3.5-5.1); Sodium 139 mmol/L (136-145); Total Protein 6.2 gm/dl (6.4-8.2)
[2019-05-08] MEDS ORDERED: Nursing to Pharmacy Communication ONE (07:08)
[2019-05-08] MEDS: BENZONATATE 100 MG CAPSULE PO PRN ×2 (07:55→20:51)
--- NOTE | 2019-05-08 08:57 | Ultrasound Report ---
ABDOMINAL ULTRASOUND, RIGHT UPPER QUADRANT HISTORY: abnormal liver studies. COMPARISON: None. FINDINGS: Pancreas: The pancreas demonstrates a normal echotexture. Liver: There are few scattered cysts with the largest measuring 1.1 cm. Gallbladder: No gallbladder wall thickening. No gallstones. Suspect a 2 mm gallbladder polyp. CBD: 6 mm. Right kidney: No hydronephrosis. An 8 mm upper pole cyst. IMPRESSION: 1. No gallstones. No gallbladder wall thickening. 2. A few small hepatic and right renal cysts. 3. Suspect a 2 mm gallbladder polyp. ACT 112: Negative or not required by law. Electronically signed by: Andrzej Yancey M.D. 05/08/2019 8:56 AM
[2019-05-08] MEDS: PANTOprazole 40 MG TAB PO SCH (09:45)
[2019-05-08] MEDS: AMLODIPINE BESYLATE 5 MG TAB PO SCH (09:45)
[2019-05-08] MEDS: lisinopriL 20 MG TAB PO SCH (09:46)
[2019-05-08] MEDS: CHOLECALCIFEROL 1,000 UNITS 25 MCG TAB PO SCH (09:46)
[2019-05-08] MEDS: ACETAMINOPHEN 325 MG TAB PO PRN ×2 (13:13→20:48)
--- NOTE | 2019-05-08 14:13 | XRay Report ---
XR chest 1V portable CLINICAL HISTORY: thoracentesis postthoracentesis COMPARISON STUDY: 05/01/2019 FINDINGS: Slight increase in aeration right lung base postthoracentesis. No significant postprocedura l pneumothorax. Left lung remains clear. IMPRESSION: No significant postprocedural pneumothorax. Slight improvement in aeration right lung ba se. ACT 112: Negative or not required by law. The above report was generated using voice recognition software. It may contain grammatical, syntax or spelling errors. Electronically signed by: Asher Kamara M.D. 05/08/2019 2:12 PM
--- NOTE | 2019-05-08 14:31 | Consultation Report ---
DATE OF CONSULTATION: 05/08/2019 REASON FOR CONSULTATION: Right pleural effusion. HISTORY OF PRESENT ILLNESS: A 69-year-old female with a history of bilateral breast carcinoma as well as GERD who underwent a SALEEM-BSO on 04/13/2019 for what turned out to be apparently benign reasons. She presented back a week after discharge and was found to have bilateral pulmonary emboli with an infiltrative pattern right lower lobe. She was placed on heparin and transitioned to Xarelto. Her tamoxifen been discontinued. She returned to her primary care physician 10 days after her admission to the hospital and subsequently discharged with complaint of fever and she had an increasing pleural effusion. She was sent home on Levaquin and had some improvement in her cough, but had increasing dyspnea on exertion and she had a right pleural effusion. The patient was sent to the Emergency Room and was found to have a large right pleural effusion and was admitted. I have been asked to comment on this. The patient has been a lifetime nonsmoker. She felt "fine" before all this started with her recent surgery. PAST MEDICAL HISTORY: 1. Hypothyroidism. 2. Hyperlipidemia. 3. Gastroesophageal reflux disease. 4. Hypertension. ALLERGIES: No known drug allergies. SOCIAL HISTORY: The patient lives with her sister and her [id number]. She has no children. 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 She has never smoked. She does drink beer on occasion. FAMILY MEDICAL HISTORY: The patient has no children. Her parents are both . Sister is in apparently fair health. REVIEW OF SYSTEMS: The patient denies any visual or auditory symptoms. Her weight has been relatively stable, although she has dropped "a couple of pounds" since her surgery 3 weeks ago. She does have a cough which has been nonproductive more recently. She has marked dyspnea on exertion. Complains of occasional right sided back pain with some chest tightness. She denies palpitations. She had no nausea, vomiting or diarrhea. She has had no skin breakdown. She has no joint effusions. She has had no neurologic events such as amaurosis fugax, transient ischemic attack. PHYSICAL EXAMINATION: GENERAL: This is a 5 feet 1 inch, 144 pound female who is awake, alert and oriented. HEENT: Her extraocular movements are intact. Her pupils are equally round and reactive. Her sclerae are anicteric. Teeth are in fair repair. NECK: Supple. I detect no neck vein distention or thyromegaly. She has no supraclavicular or cervical lymphadenopathy. I detect no carotid bruits. LUNGS: She does have decreased breath sounds on the left side. She has no significant cardiac rub. HEART: She has a regular rate and rhythm of her heart. She is moving air well without wheezing on the right. ABDOMEN: Soft and her incisions are clean. EXTREMITIES: She has no peripheral edema. She has excellent peripheral pulses. She has no joint effusions. NEUROLOGIC: She is completely intact. LABORATORY DATA: I reviewed her labs. I do not have a good explanation for why her PT/INR are high. In addition, upon her presentation, her white count was mildly elevated at 12,380. Hemoglobin is 10.7. Her PT was 17.5, INR was 1.8, her PTT was 47.8. AST and ALT were high at [address] scan showed the margins of fusion on the right. ASSESSMENT AND PLAN: Right pleural effusion in setting of a pulmonary emboli. I am more concerned about a pneumonia with parapneumonic effusion than a pulmonary infarct, but we will tap her which will give her some information. I had a long talk about a thoracentesis and the patient is agreeable. MARVA
[2019-05-08 14:48] LABS: Total Protein Pleural Fluid 3.8 g/dl
[2019-05-08 15:18] LABS: Appearance Pleural Fluid HAZY; Basophils, Fluid 0 %; Color Pleural Fluid YELLOW; Eosinophils, Fluid 0 %; Lymphocytes, Fluid 13 %; Mono,Macrophage,Mesothelial 33 %; Neutrophils, Fluid 54 %; RBC Pleural Fluid (A) 4000 /uL; Source Pleural Fluid RIGHT LUNG; WBC Pleural Fluid (A) 4404 /uL
--- NOTE | 2019-05-08 16:50 | Operative Report ---
DATE OF OPERATION: 05/08/2019 PREOPERATIVE DIAGNOSIS: Right pleural effusion. POSTOPERATIVE DIAGNOSIS: Right pleural effusion. PROCEDURE: Right thoracentesis under ultrasound guidance. SURGEON: Fabrice Vyas MD. ANESTHESIA: Local. SPECIFICS OF PROCEDURE: After appropriate timeout had been called and the patient's back was evaluated with an ultrasound. On the left side, it could be seen that the patient had a significant amount of fluid. We selected a spot, which looked like a good entry into the pleural cavity and she was prepped and draped in usual sterile fashion. A 0.5% Xylocaine without epinephrine was used to anesthetize skin and subcutaneous tissues. A large bore needle was used to anesthetize the deeper tissues until we got free flowing yellowish clear fluid. A guidewire was inserted through the needle and the needle removed. Triple lumen catheter was slid over the guidewire and the guidewire removed and approximately 650 mL of a serous yellow fluid was drained. She tolerated it quite well. I removed the catheter and put antimicrobial dressing and chest x-ray is pending at this time. Appropriate studies were sent. I attest to the content of the Intraoperative Record and any orders documented therein. Any exception s are noted below.
[2019-05-08] MEDS ORDERED: LEVOTHYROXINE SODIUM 75 MCG TABLET PO SCH (21:00)
--- NOTE | 2019-05-08 22:27 | Hospitalist Progress Note ---
Date of Service May 08, 2019 Assessment & Plan (1) Pleural effusion, right: 69yo C female with history of breast CA, recent SALEEM-BSO performed for suspicious uterine lesion, recent submassive PE on anticoagulation with Xarelto, recent PNA s/p treatment with Levaquin. Patient returns today with worsening APONTE and dry cough, decreased activity tolerance. Found with increase in right sided pleural effusion. Decreased clot burden noted on repeat CTA. No evidence of infiltrate or infectious process. ?Hemothorax, recent anticoagulation, ?inflammatory in setting of recent PE, suspected infarct, ?parapneumonic in setting of recent PNA. Dr. Vyas contacted by ER attending, plan to drain effusion tomorrow -Admit to medical floor -Hold anticoagulation, Xarelto and ASA -Appreciate assistance of Dr. Vyas -Supplemental O2 as needed. -Patient will have a thoracocenthesis later today. concern over underlying infection (2) Abnormal LFTs: Patient with elevated LFTs, coagulopathy. Etiology uncertain at this time. -Check Acetaminophen level, acute hepatitis panel -Liver US: A few small hepatic and right renal cysts. Suspect a 2 mm gallbladder polyp LFTs trending down. will monitor. (3) Pulmonary emboli: Subacute Pulmonary emboli Diagnosed early 04/2019 Improved as noted on repeat imaging. -Holding Xarelto as above -Resume pending pleural fluid analysis (4) History of total hysterectomy with bilateral salpingo-oophorectomy (BSO): Patient doing well post-operatively. Wounds well healed, no evidence of infection -Continue to montior (5) Chronic reflux esophagitis: Chronic. Stable -Continue Omeprazole (6) Hyperlipidemia: Chronic -Holding Atorvastatin for now in setting of elevated LFTs -Repeat LFTs in AM (7) Hypertension: Blood pressure mildly elevated -Continue Amlodipine -Continue Lisinopril -Continue to monitor (8) Hypothyroidism: Chronic -Continue Synthroid (9) Intraductal carcinoma of right breast: Patient recently taken off Tamoxifen due to submassive PE. She was switched to Anastrozole by Dr. Gooden. Has not yet started this medication -Resume Anastrozole on discharge Subjective 69 yo female reports feeling better. She states she is breathing better and has less shortness of breath today. Patient denies any nausea, vomiting, diarrhea. Review of Systems Review of Systems: All systems reviewed & are unremarkable except as noted in HPI & below Physical Exam Physical Exam: General: patient resting comfortably, NAD, non-toxic in appearance, AA&O x 4 Skin: warm, dry, surgical sites on abdomen well approximated, small smount of bleeding noted on under garments, no dehiscence HEENT: NC/AT, PERRL, EOMI, anicteric sclera, conjunctiva without injection, external ear normal to inspection and nontender, nares patent, moist mucus membranes, dentition intact, no oropharyngeal lesions, neck supple, trachea midline, no LAD, no thyromegaly, no JVD Heart: +S1/S2, regular, no m/r/g Lungs: equal air entry bilaterally, no rales/rhonchi/wheezes, diminished breath sounds in right base, dullness to percussion right base Abd: +BS, soft, NT/ND, no masses/organomegaly/ascites Ext: warm, 2+ pulses in UE/LE bilaterally, no clubbing/cyanosis or edema Neuro: nonfocal, patient AA&O x 4, speech intact, no facial droop, moving all extremities on command with equal strength 5/5 Results & Data Vital Signs (Past 12 Hours) Vital Signs Temp Pulse Resp BP Pulse Ox 05/08/19 15:31 36.6 C 105 H 18 100/56 L 97 PG Care Time/CCT Total # of Minutes Spent Total Time Spent with Patient: Total time spent is greater than 50% in coordination of care (as documented) at patient's floor/unit and/or counseling patient: Coding Level of Care Code 62329 Subseq Hosp Care Lvl 3 Diagnoses Pleural effusion, right J90 Abnormal LFTs R94.5 Pulmonary emboli I27.82 Acute cor pulmonale presence: unspecified Chronicity: chronic Pulmonary embolism type: unspecified History of total hysterectomy with bilateral salpingo-oophorectomy (BSO) Z90.710; Z90.722; Z90.79 Chronic reflux esophagitis K21.0 Hyperlipidemia E78.5 Hyperlipidemia type: unspecified Hypertension I10 Hypertension type: essential hypertension Hypothyroidism E03.9 Hypothyroidism type: unspecified Intraductal carcinoma of right breast D05.11 Time Spent (min) 35 (1) Hyperlipidemia Hyperlipidemia type: unspecified Qualified Code(s): E78.5 - Hyperlipidemia, unspecified (2) Hypothyroidism Hypothyroidism type: unspecified Qualified Code(s): E03.9 - Hypothyroidism, unspecified (3) Pulmonary emboli Acute cor pulmonale presence: unspecified Chronicity: chronic Pulmonary embolism type: unspecified Qualified Code(s): I27.82 - Chronic pulmonary embolism (4) Hypertension Hypertension type: essential hypertension Qualified Code(s): I10 - Essential (primary) hypertension
[2019-05-09 07:10] VITALS: BP 113/55; TEMP 98.2; O2SAT 92
[2019-05-09] MEDS: PANTOprazole 40 MG TAB PO SCH (08:49)
[2019-05-09] MEDS: BENZONATATE 100 MG CAPSULE PO PRN (08:49)
[2019-05-09] MEDS: lisinopriL 20 MG TAB PO SCH (08:49)
[2019-05-09] MEDS: AMLODIPINE BESYLATE 5 MG TAB PO SCH (08:49)
[2019-05-09] MEDS: CHOLECALCIFEROL 1,000 UNITS 25 MCG TAB PO SCH (08:49)
[2019-05-09] MEDS ORDERED: RIVAROXABAN 15 MG TAB PO SCH (10:15)
--- NOTE | 2019-05-09 10:21 | XRay Report ---
SINGLE VIEW CHEST CLINICAL HISTORY: Dyspnea. FINDINGS: An AP, portable, upright chest radiograph is compared to study dated 05/08/2019 and correlat ed with chest CT dated 05/07/2019. The examination is mildly degraded by portable technique and patien t rotation. The heart is top normal for projection. Linear airspace opacities are again seen at the right lung base. Large pleural effusion or pneumothorax is identified. The skeletal structures are o steopenic. The bony thorax is grossly intact. Surgical clips project over the right breast. IMPRESSION: 1. Linear airspace opacities are again seen at the right lung base and likely represent platelike ate lectasis. 2. The lungs are otherwise clear. No large pleural effusion is identified. ACT 112: Negative or not required by law. Electronically signed by: Yvon Lopez M.D. 05/09/2019 10:20 AM
[2019-05-09 10:35] LABS: Albumin Level 2.3 gm/dl (3.4-5.0); BUN Creatinine Ratio 18.9 (10-20); Creatinine Clr Calc Pharmacy 49.4 ml/min; Est GFR (African American) 70.8; Est GFR (Non-African American) 61.1
[2019-05-09 10:47] LABS: Albumin Globulin Ratio 0.5 (0.9-2); Bilirubin,Total 0.3 mg/dl (0.2-1); Globulin 4.4 gm/dl (2.5-4.0); Total Protein 6.7 gm/dl (6.4-8.2)
--- NOTE | 2019-05-09 11:50 | Progress Note ---
DATE: 05/09/2019 Ms. Edmonds was seen today on 05/09/2019. I performed a thoracentesis yesterday and her x-ray looked much better. The fluid concerns to me. There was a thick yellow fluid. pH was 7.46. However, the LDH was 346. Glucose is 119. Despite these numbers, there was preponderance of white cells. I am concerned that this is a parapneumonic effusion. The patient received Levaquin as an outpatient. She had an infiltrate in her right lower lobe and there was a concern this may be a pulmonary infarct; however, this fluid is not from a pulmonary infarct. I would treat this patient with antibiotics for the next few days. She is better on room air today after we drained her and she sounds better. I inspected her thoracentesis site is clean. I am not adverse that this patient going home and I would continue the Xarelto, but I would put her on antibiotics. MARVA
[2019-05-09 12:39] VITALS: PULSE 105
[2019-05-09 12:42] LABS: Hepatitis A Antibody IgM NON-REACTIVE (NON-REACTIVE); Hepatitis B Core Antibody IgM NON-REACTIVE (NON-REACTIVE)
== END 2019-05-09 14:27 | disposition home or self-care (01) | DRG 186 ==
LOC: ED 13:37 → SUATTDRO 18:51 → 4W 18:51